=== PATIENT | female | born 1935 | race Caucasian/White ===

== ENCOUNTER 2019-08-09 05:25 | Emergency (ER) | payer MEDICARE, SELFPAY ==
--- NOTE | ~2019-08-09 | XR_ITS ---
XR chest 1V portable 08/09/2019 07:39 Indication: Status post fall. Head laceration. Chest pain. Procedure: AP portable chest Comparison: Comparison to multiple prior studies sequentially, with oldest reviewed study dated 06/07. Findings: There is chronic deformity of the right thoracic cavity with multiple healed rib fractures. There is an old healed distal left clavicular fracture. There is chronic right acromioclavicular amrik nt separation. There is chronic apical pleural thickening/scarring. No focal air space disease, pulmo nary edema, pleural effusion or suspected pneumothorax. Impression: 1: No acute cardiopulmonary disease. Reviewed, dictated and finalized at location A. ODS EXAMINER Impression: 1: No acute cardiopulmonary disease.
--- NOTE | ~2019-08-09 | CT_ITS ---
EXAMINATION: CT brain wo con DATE: 08/09/2019 07:16 INDICATION: Status post fall. Laceration to the back of the head. TECHNIQUE: Computed tomography (CT) of the head was performed without intravenous contrast. The dose- length product was 605.33 mGy-cm. The mA was adjusted according to patient size. Iterative reconstruc tion technique was employed. COMPARISON: CT dated 08/07/2018 FINDINGS: No acute intracranial hemorrhage, infarction, mass or mass effect. No ventriculomegaly or m idline shift. There are scattered moderate periventricular and subcortical white matter changes, most likely related to small vessel ischemic disease (microangiopathy). No ventriculomegaly or midline sh ift. Generalized atrophy. There is intracranial atherosclerosis. There is mucosal thickening of the r ight maxillary and the ethmoid sinuses. Mastoids are pneumatized. There is a partially calcified subc utaneous nodule at the left vertex, likely sebaceous cyst. IMPRESSION: 1. No acute intracranial abnormality. 2: Chronic age-related findings. Reviewed, dictated and finalized at location A. TLECOCK FEATHER TRIMMER
--- NOTE | ~2019-08-09 | CT_ITS ---
EXAMINATION: CT cervical spine wo con DATE: 08/09/2019 07:16 INDICATION: Status post fall. Neck pain. TECHNIQUE: Computed tomography (CT) of the cervical spine was performed without intravenous contrast. The dose-length product was 99 mGy-cm. Automated exposure control and iterative reconstruction techn ique were employed. COMPARISON: CT dated 06/23/2018 FINDINGS: Chronic T3 burst fracture. Accentuated cervical lordosis. No acute cervical fracture. Odont oid process within normal limits. There is minimal anterolisthesis at C7-T1, unchanged. Mild endplate degenerative changes at C4-5. There is biapical pleural parenchymal scarring. No pneumothorax identi fied. There is levoscoliosis of the cervical spine. IMPRESSION: 1. No acute fracture. 2: Stable chronic T3 burst fracture. Reviewed, dictated and finalized at location A. [place] ACCOUNT SPECIALIST
[2019-08-09 05:30] VITALS: BP 106/43; PULSE 80; RESP 18; TEMP 36.4; O2SAT 95
--- NOTE | 2019-08-09 06:51 | ECG_ITS ---
Measurements Intervals [place] Rate: 75 P: 57 ID: [id number] QRS: -3 QRSD: 85 T: 21 QT: 371 QTc: 415 Interpretive Statements SINUS RHYTHM WITH FIRST DEGREE AV BLOCK DELAYED PRECORDIAL R/S TRANSITION BASELINE ARTIFACT- I, III, AVR, AVL, V6 ABNORMAL ECG Electronically Signed On 08-09-2019 8:08:58 GOLD LEAF PRINTER by Harish Davis D.O.
[2019-08-09] MEDS: TETANUS,DIPHTHERIA,AC PERTUSSIS ADULT (0.5 ML) BOOSTRIX IM (07:16)
--- NOTE | 2019-08-09 07:35 | ED.FALL ---
HPI - Fall General Chief Complaint: Fall Stated Complaint: fall Time Seen by Provider: 08/09/19 06:15 Source: patient and family Mode of arrival: EMS Limitations: no limitations History of Present Illness HPI Narrative: 83 years old white female been feeling weak with poor appetite for the last few days, got up this morning to go to the bathroom and was have sleep, felt, struck the back of her head on the door handle, no loss of consciousness, denying any pain, history of chronic neck pain. Patient denies any fever, chills, respiratory symptoms or urinary symptoms. Had similar falls last year because sometimes she walks have sleep. Patient denies other injuries. Related Data Allergies Allergy/AdvReac Type Severity Reaction Status Date / Time meperidine Allergy Unknown Stopped Verified 06/25/18 08:16 Breathing Review of Systems Review of Systems: Narrative: CONSTITUTIONAL: Denies fever, chills, or sweats., Generally weak EYES: Denies visual changes, redness, or discharge. ENT: Denies rhinorrhea, congestion, sore throat, or otalgia. CARDIOVASCULAR: Denies chest pain, palpitations, or edema. RESPIRATORY: Denies cough or dyspnea. GASTROINTESTINAL: Denies abdominal pain, nausea, vomiting, or diarrhea. GENITOURINARY: Denies dysuria or hematuria. SKIN: Denies rash or itching. MUSCULOSKELETAL: Denies back pain, joint pain, or myalgia. NEUROLOGIC: Denies headache, numbness, or weakness. PSYCHIATRIC: Denies anxiety or depression. PMFSH Family History Family History Mother Family history of respiratory disorder Father Family history of lung cancer Social History Social History Smoking status: Never smoker Second hand tobacco smoke exposure: No Alcohol intake: never Exam Narrative: Exam Narrative: General appearance: Well-developed, well-nourished Skin: Normal color Head: Normocephalic, 1 and half centimeter occipital laceration, subcutaneous Eyes: Clear conjunctiva ENT: Oropharynx normal, ears normal, nose normal Neck: Supple, nontender Chest and respiratory: Airway patent, no respiratory distress, no accessory muscle use Heart: Regular rate/rhythm Abdomen: Soft, nontender, no organomegaly, quiet bowel sounds Vascular: Normal peripheral pulses, normal capillary refill. Musculoskeletal: Normal range of motion, nontender back Neurologic: Alert and oriented ?3, ELECTRICAL PROSPECTING ENGINEER is normal as tested, no gross motor deficit Course Course Emergency Course: Improving Vital Signs Vital signs: Vital Signs Temperature 36.4 C L 08/09/19 05:30 Pulse Rate 80 08/09/19 05:30 Respiratory Rate 18 08/09/19 05:30 Blood Pressure 106/43 L 08/09/19 05:30 Pulse Oximetry 95 08/09/19 05:30 Temperature 36.4 C L 08/09/19 05:30 Pulse Rate 86 08/09/19 09:18 Respiratory Rate 18 08/09/19 09:18 Blood Pressure 109/51 L 08/09/19 09:18 Pulse Oximetry 96 08/09/19 09:18 Procedures Laceration Laceration 1: Date: 08/09/19 Time: 07:00 Site: scalp Size (cm): 1.5 Description: linear and clean Depth: simple, single layer ====== Skin Level ====== Skin layer closed with: re (2 re) ====== Subcutaneous Layer ====== ====== Muscle Layer ====== ====== Tendon Layer ====== MDM - Fall MDM Narrative Medical decision making narrative: Patient been feeling weak for a while, my differential diagnosis is electrolyte imbalance, urinary tract infection, pneumonia, viral syndrome. Labs ordered, chest x-ray, UA, CT head and neck. Further plan to follow Differential Diagnosis
[2019-08-09 07:57] VITALS: BP 133/61; PULSE 76; RESP 14; O2SAT 95
[2019-08-09 08:10] LABS: Basophils Percent Auto 0.4 % (0.2-1.2); Hematocrit 40.8 % (37.0-47.0); Hemoglobin 13.3 g/dL (12.0-15.0); Immature Granulocyte Absolute 0.03 K/mm3 (0.00-0.031); Immature Granulocyte Percent A 0.4 % (0-0.5); Lymphocytes Absolute Auto 0.89 K/mm3 (0.9-3.2); Lymphocytes Percent Auto 10.5 % (18.3-44.2); Mean Corpuscular HGB Conc 32.6 g/dl (32-36); Mean Corpuscular Hemoglobin 28.6 pg (26-34); Mean Corpuscular Volume 87.7 fl (80-100); Mean Platelet Volume 12.1 fl (7.4-10.4); Monocytes Absolute Auto 1.1 K/mm3 (0.1-0.6); Monocytes Percent Auto 12.8 % (2.6-8.5); Neutrophils Absolute Auto 6.5 K/mm3 (1.3-6.7); Neutrophils Percent Auto 75.9 % (45.5-73.1); Platelet Count Result 187 k/mm3 (150-375); Red Blood Count 4.65 M/mm3 (4.2-5.4); Red Cell Distribution Width 13.5 % (11.5-14.5); White Blood Count 8.5 K/mm3 (4.5-10.0)
[2019-08-09 08:13] LABS: Add Urine Microscopic? YES; Appearance Urine Cloudy (Clear); Bacteria Urine Trace /hpf; Bilirubin Urine Negative (Negative); Blood Urine Negative (Negative); Color Urine Amber (Yellow); Glucose Urine UA Negative (Negative); Hyaline Casts Urine 30-49 /lpf; Ketones Urine Trace mg/dL (Negative); Leukocyte Esterase Ur Negative LEU/UL (Negative); Mucus Urine Few /lpf; Nitrate Urine Negative (Negative); Protein Urine 1+ mg/dL (Negative); RBC Urine 0-2 /hpf (0-2); Specific Grav Ur 1.023 (1.001-1.035); Squamous Epithelial Cell Urine Occasional /hpf (Few); Urobilinogen Urine Negative mg/dL (<2.0)
[2019-08-09 08:21] LABS: Alanine Aminotransferase 35 U/L (4-35); Albumin Level 4.2 g/dL (3.5-5.1); Alkaline Phosphatase 87 U/L (38-126); Aspartate Amino Transferase 31 U/L (14-36); Bilirubin,Total 0.9 mg/dL (0.2-1.3); Blood Urea Nitrogen 31 mg/dL (7-17); Calcium 9.3 mg/dL (8.4-10.2); Carbon Dioxide 24 mmol/L (22-30); Chloride 105 mmol/L (98-107); Estimated Glomerular Filt Rate 43; Glucose 111 mg/dL (65-105); Potassium 4.2 mmol/L (3.4-5.0); Sodium 139 mmol/L (137-145)
[2019-08-09 09:18] VITALS: BP 109/51; PULSE 86; RESP 18; O2SAT 96
[2019-08-09 09:53] VITALS: BP 132/59; PULSE 70; RESP 16; O2SAT 94
== END 2019-08-09 09:56 ==
PROVIDERS: Emergency Provider Emergency Medicine; PCP Family Medicine
DX: S01.01XA Laceration without foreign body of scalp, initial encounter (principal); R53.1 Weakness; Z23 Encounter for immunization; I44.0 Atrioventricular block, first degree; R94.31 Abnormal electrocardiogram [ECG] [EKG]; W01.198A Fall on same level from slipping, tripping and stumbling with subsequent striking against other object, initial encounter
CPT/HCPCS: 12001; 36415; 51701; 70450; 71045; 72125; 80053; 81001; 85025; 87804; 90471; 90715; 93005; 99284

== ENCOUNTER 2020-02-07 08:47 | Emergency (ER) | payer MEDICARE, SELFPAY ==
--- NOTE | ~2020-02-07 | XR_ITS ---
EXAMINATION: XR hand LT min 3V EXAM DATE: 02/07/2020 09:48 INDICATION: Initial encounter following injury, with pain of the left hand. TECHNIQUE: Left hand frontal, lateral and oblique projections obtained and reviewed. There is no dion or study for comparison. FINDINGS: Left metacarpal bones are unremarkable. There are no acute fractures or dislocations ident ified. There is no subcutaneous gas. The soft tissue is unremarkable. There are no radiopaque for eign bodies. There is moderate 1st carpometacarpal primary osteoarthritis. IMPRESSION: No acute osseous findings. Reviewed, dictated and finalized at location A. IMPRESSION: No acute osseous findings.
--- NOTE | ~2020-02-07 | CT_ITS ---
EXAMINATION: CT brain wo con EXAM DATE: 02/07/2020 09:43 INDICATION: Dizziness. Fall. TECHNIQUE: Spiral CT of the head was performed without contrast. Axial, coronal and sagittal images were reviewed. The dose-length product (DLP) for this examination was 681.00 mGy-cm. The exposure w as tailored according to patient size, and iterative reconstruction (ASIR) was used as additional dos e reduction technique. 08/09/2019 FINDINGS: There is no acute intraparenchymal hemorrhage. No evidence of intraparenchymal brain mass lesion. No evidence of acute infarction. Please note that initial head CT has limited sensitivity f or small or acute infarctions. There is moderate periventricular and subcortical hypodensity, nonspec ific but probably related to small vessel ischemic disease. There is moderate prominence of the sul ci and ventricles related to cerebral atrophy. There is intracranial carotid arteriosclerosis. The re are no extra-axial collections. There is no mass effect or midline shift. Patient has had bilate ral ocular lens surgery. Partially calcified left vertex scalp lesion likely sebaceous cyst. The vi sualized sinuses and mastoid air cells are well aerated. There is no significant interval change. IMPRESSION: 1. No acute intracranial findings. 2. Chronic age related findings. Reviewed, dictated and finalized at location A.
[2020-02-07 08:45] VITALS: BP 142/62; PULSE 70; RESP 14; TEMP 36.1; O2SAT 95
--- NOTE | 2020-02-07 08:52 | ECG_ITS ---
Measurements Intervals [place] Rate: 65 P: 52 VT: 212 QRS: 1 QRSD: 94 T: 29 QT: 400 QTc: 419 Interpretive Statements SINUS RHYTHM WITH FIRST DEGREE AV BLOCK CANNOT RULE OUT SEPTAL INFARCT, AGE INDETERMINATE BASELINE ARTIFACT- I, III, AVR, AVL, V6 ABNORMAL ECG Electronically Signed On 02-07-2020 9:04:07 CDT by Harish Davis D.O.
--- NOTE | 2020-02-07 08:53 | ED.DIZZY ---
HPI - Dizziness General Chief Complaint: Dizziness Stated Complaint: dizziness/fall Time Seen by Provider: 02/07/20 08:51 History of Present Illness HPI Narrative: 84 yo female w/ h/o dementia BIBEMS from assisted living at [facility] after a fall. She suffered an unwitnessed fall from standing. She syas that she got dizzy and fell. She is not able to describe dizziness. Denies LOC. She reports pain and stiffness in the in the medial side of the left hand. She also reports sue she struck the leftside of her head. She denies any pain. She does have some on going dizziness worse with upright posture. Related Data Allergies Allergy/AdvReac Type Severity Reaction Status Date / Time meperidine Allergy Unknown Stopped Verified 06/25/18 08:16 Breathing Review of Systems Review of Systems: All systems reviewed & are unremarkable except as noted in HPI and below Constitutional: Constitutional: Denies fever(s) and Denies weakness Eyes: Eyes: Denies change in vision Cardiovascular: Cardiovascular: Denies chest pain Respiratory: Respiratory: Denies dyspnea Gastrointestinal: Gastrointestinal: Denies abdominal pain and Denies nausea Genitourinary: Genitourinary: Denies dysuria Musculoskeletal: Musculoskeletal: Denies back pain Neurologic: Reports dizziness, Denies headache(s) and Denies weakness [facility] Family History Family History Mother Family history of respiratory disorder Father Family history of lung cancer Social History Social History Smoking status: Never smoker Second hand tobacco smoke exposure: No Alcohol intake: never Exam Const: General: no acute distress and alert Orientation/consciousness: patient oriented x3 HENMT: Head: normal to inspection Neck: Neck: normal visual inspection and no lymphadenopathy Chest: Chest palpation & inspection: no tenderness Resp: Effort & Inspection: normal respiratory effort Auscultation: clear to auscultation bilaterally, no rales, no rhonchi and no wheezes Cardio: Jugular venous distension: no JVD Rate: regular rate Rhythm: regular rhythm Heart sounds: no murmurs GI: Inspection: non-distended GI Palp: Yes Soft to palpation and No Tenderness to palpation present (GI) Skin: General skin exam: normal color Neuro: General: patient oriented x3 and moves all extremities Speech: normal speech Extrem: Other: minimal tenderness of MCPs of 3-5 fingers on left hand. No deformity. Full ROM. Psych: Appearance: well kempt Affect: normal affect Course Vital Signs Vital signs: Vital Signs Temperature 36.1 C L 02/07/20 08:45 Pulse Rate 70 02/07/20 08:45 Respiratory Rate 14 02/07/20 08:45 Blood Pressure 142/62 H 02/07/20 08:45 Pulse Oximetry 95 02/07/20 08:45 Temperature 36.1 C L 02/07/20 08:45 Pulse Rate 77 02/07/20 11:20 Respiratory Rate 22 H 02/07/20 11:20 Blood Pressure 153/66 H 02/07/20 11:20 Pulse Oximetry 98 02/07/20 11:20 MDM - Dizziness MDM Narrative Medical decision making narrative: No dizziness. walking with stable gait. Labs and imaging unremarkable. Medical Records Attestation: I reviewed the patient's medical records. Lab Data Attestation: I reviewed the patient's lab results. Result diagrams: 02/07/20 09:25 02/07/20 09:24 Labs: Lab Results 02/07/20 02/07/20 02/07/20 Range/Units 09:13 09:24 09:24 WBC (4.5-10.0) K/mm3 RBC (4.2-5.4) M/mm3 Hgb (12.0-15.0) g/dL Hct (37.0-47.0) % MCV (80-100) fl MCH (26-34) pg MCHC (32-36) g/dl RDW (11.5-14.5) % Plt Count (150-375) k/mm3 MPV (7.4-10.4) fl Immature Gran % (Auto) (0-0.5) % Neut % (Auto) (45.5-73.1) % Lymph % (Auto) (18.3-44.2) % [place] % (Auto) (2.6-8.5) % Eos % (Auto) (0-4.4) % Baso % (Auto) (0.2-1.2) % Lymph # (Auto)
[2020-02-07] MEDS: SODIUM CHLORIDE 0.9% IV 500 ML 999 ML IV CONT (09:01)
[2020-02-07 09:22] LABS: Add Urine Microscopic? NO; Appearance Urine Clear (Clear); Bilirubin Urine Negative (Negative); Blood Urine Negative (Negative); Color Urine Yellow (Yellow); Glucose Urine UA Negative (Negative); Ketones Urine Negative (Negative); Leukocyte Esterase Ur Negative LEU/UL (Negative); Nitrate Urine Negative (Negative); Protein Urine Negative (Negative); Specific Grav Ur 1.018 (1.001-1.035); Urobilinogen Urine Negative mg/dL (<2.0)
[2020-02-07 09:26] VITALS: BP 146/56; BP 158/75; PULSE 55; PULSE 56
[2020-02-07 09:28] VITALS: BP 135/77; PULSE 66
[2020-02-07 09:34] LABS: Basophils Percent Auto 0.8 % (0.2-1.2); Eosinophils Absolute Auto 0.2 K/mm3 (0-0.3); Eosinophils Percent Auto 4.2 % (0-4.4); Hematocrit 40.7 % (37.0-47.0); Hemoglobin 13.1 g/dL (12.0-15.0); Immature Granulocyte Absolute 0.03 K/mm3 (0.00-0.031); Immature Granulocyte Percent A 0.6 % (0-0.5); Lymphocytes Absolute Auto 1.11 K/mm3 (0.9-3.2); Lymphocytes Percent Auto 22.2 % (18.3-44.2); Mean Corpuscular HGB Conc 32.2 g/dl (32-36); Mean Corpuscular Hemoglobin 28.4 pg (26-34); Mean Corpuscular Volume 88.3 fl (80-100); Mean Platelet Volume 12.1 fl (7.4-10.4); Monocytes Absolute Auto 0.5 K/mm3 (0.1-0.6); Monocytes Percent Auto 10.4 % (2.6-8.5); Neutrophils Absolute Auto 3.1 K/mm3 (1.3-6.7); Neutrophils Percent Auto 61.8 % (45.5-73.1); Platelet Count Result 187 k/mm3 (150-375); Red Blood Count 4.61 M/mm3 (4.2-5.4); Red Cell Distribution Width 13.7 % (11.5-14.5)
[2020-02-07 09:42] LABS: Prothrombin Time 13.2 Seconds (11.1-14.7)
[2020-02-07 09:43] LABS: Partial Thromboplastin Time 30.9 SECONDS (22.3-36.8)
[2020-02-07 09:47] LABS: Anion Gap 8.7 mmol/L (7-16); Blood Urea Nitrogen 21 mg/dL (7-17); Calcium 9.2 mg/dL (8.4-10.2); Carbon Dioxide 29 mmol/L (22-30); Chloride 108 mmol/L (98-107); Estimated CRCL calculation 34 ml/min; Estimated Glomerular Filt Rate 60; Glucose 111 mg/dL (65-105); Potassium 3.7 mmol/L (3.4-5.0); Sodium 142 mmol/L (137-145)
--- NOTE | 2020-02-07 09:55 | PC.NURSE ---
Terri w/ Poly W - pts POA, at [phone] and given update on pt.
--- NOTE | 2020-02-07 09:56 | PC.NURSE ---
Pt currently in CT scan, via stretcher.
[2020-02-07 10:07] VITALS: BP 154/70; PULSE 54; RESP 18; O2SAT 98
[2020-02-07 11:20] VITALS: BP 153/66; PULSE 77; RESP 22; O2SAT 98
== END 2020-02-07 12:00 ==
PROVIDERS: Emergency Provider Emergency Medicine; PCP Family Medicine
DX: R42 Dizziness and giddiness (principal); M79.642 Pain in left hand; W18.39XA Other fall on same level, initial encounter; I44.0 Atrioventricular block, first degree; R94.31 Abnormal electrocardiogram [ECG] [EKG]
CPT/HCPCS: 36415; 51701; 70450; 73130; 80048; 81003; 85025; 85610; 85730; 93005; 96360; 99284; J7040

== ENCOUNTER 2020-02-13 14:53 | Emergency (ER) | payer MEDICARE, SELFPAY ==
[2020-02-13] VITALS (15 sets, daily range): BP systolic 102–159; BP diastolic 65–108; PULSE 60–94; RESP 15–20; TEMP 36.4; O2SAT 93–95
--- NOTE | 2020-02-13 14:57 | ECG_ITS ---
Measurements Intervals [place] Rate: 81 P: 51 [place]: 218 QRS: 10 QRSD: 98 T: 44 QT: 383 QTc: 445 Interpretive Statements SINUS RHYTHM WITH SINUS ARRHYTHMIA WITH FIRST DEGREE AV BLOCK BASELINE ARTIFACT- I, II, III, AVR, AVL, AVF, V1-V6 ABNORMAL ECG Electronically Signed On 02-14-2020 7:53:56 CDT by Harish Davis D.O.
[2020-02-13] MEDS: SODIUM CHLORIDE 0.9% IV 1,000 ML 999 ML IV CONT (15:44)
[2020-02-13 16:00] LABS: Add Urine Microscopic? YES; Appearance Urine Clear (Clear); Bilirubin Urine Negative (Negative); Blood Urine 1+ (Negative); Color Urine Yellow (Yellow); Glucose Urine UA Negative (Negative); Ketones Urine 1+ mg/dL (Negative); Leukocyte Esterase Ur Negative LEU/UL (Negative); Mucus Urine Rare /lpf; Nitrate Urine Negative (Negative); Protein Urine Negative (Negative); RBC Urine 0-2 /hpf (0-2); Specific Grav Ur 1.019 (1.001-1.035); Urobilinogen Urine Negative mg/dL (<2.0); WBC Urine 0-3 /hpf
[2020-02-13 16:05] LABS: Basophils Absolute Auto 0.1 K/mm3 (0.0-0.1); Basophils Percent Auto 0.7 % (0.2-1.2); Eosinophils Absolute Auto 0.1 K/mm3 (0-0.3); Eosinophils Percent Auto 1.6 % (0-4.4); Hematocrit 35.8 % (37.0-47.0); Hemoglobin 11.8 g/dL (12.0-15.0); Immature Granulocyte Absolute 0.03 K/mm3 (0.00-0.031); Immature Granulocyte Percent A 0.4 % (0-0.5); Lymphocytes Absolute Auto 1.35 K/mm3 (0.9-3.2); Lymphocytes Percent Auto 19.1 % (18.3-44.2); Mean Platelet Volume 12.3 fl (7.4-10.4); Monocytes Absolute Auto 0.9 K/mm3 (0.1-0.6); Monocytes Percent Auto 12.5 % (2.6-8.5); Neutrophils Absolute Auto 4.6 K/mm3 (1.3-6.7); Neutrophils Percent Auto 65.7 % (45.5-73.1); Platelet Count Result 202 k/mm3 (150-375); Red Blood Count 4.07 M/mm3 (4.2-5.4); Red Cell Distribution Width 13.7 % (11.5-14.5); White Blood Count 7.1 K/mm3 (4.5-10.0)
[2020-02-13 16:16] LABS: Anion Gap 6 mmol/L (8-16); Blood Urea Nitrogen 33 mg/dL (7-17); Calcium 8.6 mg/dL (8.4-10.2); Carbon Dioxide 23 mmol/L (22-30); Chloride 112 mmol/L (98-107); Estimated CRCL calculation 41 ml/min; Estimated Glomerular Filt Rate > 60; Glucose 87 mg/dL (65-105); Potassium 3.7 mmol/L (3.4-5.0); Sodium 141 mmol/L (137-145)
--- NOTE | 2020-02-13 17:22 | ED.AMS ---
HPI - Altered Mental Status General Chief Complaint: Altered Mental Status Stated Complaint: ams/several falls Time Seen by Provider: 02/13/20 15:08 History of Present Illness HPI narrative: Patient is an 84-year-old female who presents ER with concern for altered mental status from her [facility]. Baseline patient is oriented x3. Right now she is oriented 2-3. She has no complaints of pain. No reports of hypoxia or cough from the fci. Related Data Home Medications Medication Instructions Recorded Confirmed ferrous gluconate 324 mg PO DAILY 02/13/20 Allergies Allergy/AdvReac Type Severity Reaction Status Date / Time meperidine Allergy Unknown Stopped Verified 06/25/18 08:16 Breathing Review of Systems Review of Systems: ROS unobtainable: Yes unobtainable due to mental status PMFSH Social History Social History Smoking status: Never smoker Second hand tobacco smoke exposure: No Alcohol intake: never Gender identity (if verbalized by the patient): Female Exam Narrative: Exam Narrative: GENERAL: Well-appearing, well-nourished, and in no acute distress. HEAD: Normocephalic, atraumatic. ENT: Mucous membranes moist. CHEST: Clear to auscultation. No respiratory distress. HEART: Regular rate and rhythm. Normal peripheral pulses. ABDOMEN: Soft, nontender, nondistended. EXTREMITIES: Normal range of motion. No edema. SKIN: Warm, dry, no rash. NEURO: No focal deficits. Alert and oriented x2-3. Course Course Emergency Course: Unremarkable evaluation. Patient hydrated. Seems more alert. Sent back to fci. Vital Signs Vital signs: Vital Signs Temperature 97.6 F 02/13/20 14:56 Pulse Rate 81 02/13/20 14:56 Respiratory Rate 18 02/13/20 14:56 Blood Pressure 159/86 H 02/13/20 14:56 Pulse Oximetry 95 02/13/20 14:56 Temperature 97.6 F 02/13/20 14:56 Pulse Rate 81 02/13/20 14:56 Respiratory Rate 18 02/13/20 14:56 Blood Pressure 159/86 H 02/13/20 14:56 Pulse Oximetry 95 02/13/20 14:56 MDM - Altered Mental Status Lab Data Result diagrams: 02/13/20 15:59 02/13/20 15:59 Labs: Lab Results 02/13/20 02/13/20 02/13/20 Range/Units 15:45 15:59 15:59 WBC 7.1 (4.5-10.0) K/mm3 RBC 4.07 L (4.2-5.4) M/mm3 Hgb 11.8 L (12.0-15.0) g/dL Hct 35.8 L (37.0-47.0) % MCV 88.0 (80-100) fl MCH 29.0 (26-34) pg MCHC 33.0 (32-36) g/dl RDW 13.7 (11.5-14.5) % Plt Count 202 (150-375) k/mm3 MPV 12.3 H (7.4-10.4) fl Immature Gran % (Auto) 0.4 (0-0.5) % Neut % (Auto) 65.7 (45.5-73.1) % Lymph % (Auto) 19.1 (18.3-44.2) % [place] % (Auto) 12.5 H (2.6-8.5) % Eos % (Auto) 1.6 (0-4.4) % Baso % (Auto) 0.7 (0.2-1.2) % Lymph # (Auto) 1.35 (0.9-3.2) K/mm3 [place] # (Auto) 0.9 H (0.1-0.6) K/mm3 Eos # (Auto) 0.1 (0-0.3) K/mm3 Baso # (Auto) 0.1 (0.0-0.1) K/mm3 Abs Immat Gran (auto) 0.03 (0.00-0.031) K/mm3 Absolute Neuts (auto) 4.6 (1.3-6.7) K/mm3 Absolute Nucleated RBC 0.0 (0.0-0.012) K/mm3 Nucleated RBC % 0.0 (0.0-0.2) % Sodium 141 (137-145) mmol/L Potassium 3.7 (3.4-5.0) mmol/L Chloride 112 H (98-107) mmol/L Carbon Dioxide 23 (22-30) mmol/L Anion Gap 6 L (8-16) mmol/L BUN 33 H D (7-17) mg/dL Creatinine 0.80 (0.7-1.0) mg/dL Estim Creat Clear Calc 41 ml/min Estimated GFR > 60 (59 - ) Glucose 87 (65-105) mg/dL Calcium 8.6 (8.4-10.2) mg/dL Urine Color Yellow (Yellow) Urine Appearance Clear (Clear) Urine pH 5.0 (5.0-9.0) Ur Specific [place] 1.019 (1.001-1.035) Urine Protein Negative (Negative) mg/dL Urine Glucose (UA) Negative (Negative) mg/dL Urine Ketones 1+ H (Negative) mg/dL Ur Blood (Man) 1+ H (Negative) Urine Nitrate Negative (Negative) Urine Bilirubin Negative (Negativ
== END 2020-02-13 18:05 ==
PROVIDERS: Emergency Provider Emergency Medicine; PCP Family Medicine
DX: R53.83 Other fatigue (principal); F03.90 Unspecified dementia, unspecified severity, without behavioral disturbance, psychotic disturbance, mood disturbance, and anxiety; E03.9 Hypothyroidism, unspecified; Z96.652 Presence of left artificial knee joint
CPT/HCPCS: 36415; 51701; 80048; 81001; 85025; 93005; 96360; 99283; J7030

== ENCOUNTER 2020-02-16 20:40 | Emergency (ER) | payer MEDICARE, SELFPAY ==
--- NOTE | ~2020-02-16 | CT_ITS ---
EXAMINATION: CT brain wo con EXAM DATE: 02/16/2020 22:08 INDICATION: Fell 6 weeks ago. Altered mental status. TECHNIQUE: Spiral CT of the head was performed without contrast. Axial, coronal and sagittal images were reviewed. The dose-length product (DLP) for this examination was 681.00 mGy-cm. The exposure w as tailored according to patient size, and iterative reconstruction (ASIR) was used as additional dos e reduction technique. Comparison is made to prior examination from 02/07/2020. FINDINGS: There is no acute intraparenchymal hemorrhage. No evidence of intraparenchymal brain mass lesion. No evidence of acute infarction. Please note that initial head CT has limited sensitivity f or small or acute infarctions. There is moderate periventricular and subcortical hypodensity, nonspec ific but probably related to small vessel ischemic disease. There is moderate prominence of the sul ci and ventricles related to cerebral atrophy. There is intracranial carotid arteriosclerosis. The re are no extra-axial collections. There is no mass effect or midline shift. Patient has had bilate ral ocular lens surgery. Calcified sebaceous cyst left-sided scalp. The visualized sinuses and masto id air cells are well aerated. IMPRESSION: 1. No acute intracranial findings. 2. Chronic age related findings. Reviewed, dictated and finalized at location A.
[2020-02-16 20:40] VITALS: BP 143/71; PULSE 71; RESP 21; TEMP 36.7; O2SAT 98
--- NOTE | 2020-02-16 20:58 | ED.AMS ---
HPI - Altered Mental Status General Chief Complaint: Altered Mental Status Stated Complaint: decreased loc Time Seen by Provider: 02/16/20 20:58 History of Present Illness HPI narrative: History limited by ulises. Sent in from senior living for altered mental status. there are conflicting reports about baseline mental status. On my evalaution she is oriented x2. She has no specific complaints and says that she does not want to be her. She has reportedly been confused since a fall 2 weeks ago. On review of the chart she was seen here at that time and has been here again once more since then. Related Data Home Medications Medication Instructions Recorded Confirmed ferrous gluconate 324 mg PO DAILY 02/13/20 Allergies Allergy/AdvReac Type Severity Reaction Status Date / Time meperidine Allergy Unknown Stopped Verified 06/25/18 08:16 Breathing Review of Systems Review of Systems: All systems reviewed & are unremarkable except as noted in HPI and below PMFSH Social History Social History Smoking status: Never smoker Second hand tobacco smoke exposure: No Alcohol intake: never Gender identity (if verbalized by the patient): Female Exam Const: Nutritional Appearance: well nourished Other: Oriented x2. drowsy HENMT: Head: normal to inspection Eyes: Pupils: Equal, round and reactive pupils present EOM: EOMs intact bilaterally Resp: Effort & Inspection: normal respiratory effort Auscultation: clear to auscultation bilaterally Cardio: Rate: regular rate Rhythm: regular rhythm GI: GI Palp: Yes Soft to palpation and No Tenderness to palpation present (GI) Skin: General skin exam: normal color Neuro: General: moves all extremities, no focal motor deficits and CN's II-XI intact bilaterally Speech: normal speech Extrem: General: no edema Course Vital Signs Vital signs: Vital Signs Temperature 36.7 C 02/16/20 20:40 Pulse Rate 71 02/16/20 20:40 Respiratory Rate 21 H 02/16/20 20:40 Blood Pressure 143/71 H 02/16/20 20:40 Pulse Oximetry 98 02/16/20 20:40 Temperature 36.2 C L 02/17/20 01:12 Pulse Rate 79 02/17/20 01:12 Respiratory Rate 19 02/17/20 01:12 Blood Pressure 154/84 H 02/17/20 01:12 Pulse Oximetry 100 02/17/20 01:12 MDM - Altered Mental Status Medical Records Attestation: I reviewed the patient's medical records. Lab Data Attestation: I reviewed the patient's lab results. Result diagrams: 02/16/20 21:21 02/16/20 21:21 Labs: Lab Results 02/16/20 02/16/20 02/16/20 Range/Units 21:21 21:21 21:45 WBC 7.8 (4.5-10.0) K/mm3 RBC 4.32 (4.2-5.4) M/mm3 Hgb 12.3 (12.0-15.0) g/dL Hct 38.1 (37.0-47.0) % MCV 88.2 (80-100) fl MCH 28.5 (26-34) pg MCHC 32.3 (32-36) g/dl RDW 13.6 (11.5-14.5) % Plt Count 207 (150-375) k/mm3 MPV 12.3 H (7.4-10.4) fl Immature Gran % (Auto) 0.4 (0-0.5) % Neut % (Auto) 59.9 (45.5-73.1) % Lymph % (Auto) 21.1 (18.3-44.2) % [place] % (Auto) 14.7 H (2.6-8.5) % Eos % (Auto) 3.5 (0-4.4) % Baso % (Auto) 0.4 (0.2-1.2) % Lymph # (Auto) 1.64 (0.9-3.2) K/mm3 [place] # (Auto) 1.1 H (0.1-0.6) K/mm3 Eos # (Auto) 0.3 (0-0.3) K/mm3 Baso # (Auto) 0.0 (0.0-0.1) K/mm3 Abs Immat Gran (auto) 0.03 (0.00-0.031) K/mm3 Absolute Neuts (auto) 4.7 (1.3-6.7) K/mm3 Absolute Nucleated RBC 0.0 (0.0-0.012) K/mm3 Nucleated RBC % 0.0 (0.0-0.2) % Sodium 142 (137-145) mmol/L Potassium 3.7 (3.4-5.0) mmol/L Chloride 110 H (98-107) mmol/L Carbon Dioxide 25 (22-30) mmol/L Anion Gap 7 L (8-16) mmol/L BUN 38 H (7-17) mg/dL Creatinine 1.30 H (0.7-1.0) mg/dL Estim Creat Clear Calc Not Reportable Estimated GFR 39 L (59 - ) Glucose 102 (65-105) mg/dL Calcium 9.2 (8.4-10.2) mg/dL Total Bilirubin 1.1 (0.2-1.3) mg/dL
[2020-02-16 21:14] VITALS: BP 149/70; PULSE 60; RESP 14; O2SAT 100
[2020-02-16] MEDS: SODIUM CHLORIDE 0.9% IV 500 ML 999 ML IV CONT (21:17)
[2020-02-16 21:27] LABS: Basophils Percent Auto 0.4 % (0.2-1.2); Eosinophils Absolute Auto 0.3 K/mm3 (0-0.3); Eosinophils Percent Auto 3.5 % (0-4.4); Hematocrit 38.1 % (37.0-47.0); Hemoglobin 12.3 g/dL (12.0-15.0); Immature Granulocyte Absolute 0.03 K/mm3 (0.00-0.031); Immature Granulocyte Percent A 0.4 % (0-0.5); Lymphocytes Absolute Auto 1.64 K/mm3 (0.9-3.2); Lymphocytes Percent Auto 21.1 % (18.3-44.2); Mean Corpuscular HGB Conc 32.3 g/dl (32-36); Mean Corpuscular Hemoglobin 28.5 pg (26-34); Mean Corpuscular Volume 88.2 fl (80-100); Mean Platelet Volume 12.3 fl (7.4-10.4); Monocytes Absolute Auto 1.1 K/mm3 (0.1-0.6); Monocytes Percent Auto 14.7 % (2.6-8.5); Neutrophils Absolute Auto 4.7 K/mm3 (1.3-6.7); Neutrophils Percent Auto 59.9 % (45.5-73.1); Platelet Count Result 207 k/mm3 (150-375); Red Blood Count 4.32 M/mm3 (4.2-5.4); Red Cell Distribution Width 13.6 % (11.5-14.5); White Blood Count 7.8 K/mm3 (4.5-10.0)
[2020-02-16 21:39] LABS: Alanine Aminotransferase 27 U/L (4-35); Albumin Level 3.8 g/dL (3.5-5.1); Alkaline Phosphatase 93 U/L (38-126); Anion Gap 7 mmol/L (8-16); Aspartate Amino Transferase 31 U/L (14-36); Bilirubin,Total 1.1 mg/dL (0.2-1.3); Blood Urea Nitrogen 38 mg/dL (7-17); Calcium 9.2 mg/dL (8.4-10.2); Carbon Dioxide 25 mmol/L (22-30); Chloride 110 mmol/L (98-107); Estimated Glomerular Filt Rate 39; Glucose 102 mg/dL (65-105); Potassium 3.7 mmol/L (3.4-5.0); Sodium 142 mmol/L (137-145)
[2020-02-16 22:06] LABS: Add Urine Microscopic? YES; Appearance Urine Clear (Clear); Bilirubin Urine Negative (Negative); Blood Urine 2+ (Negative); Color Urine Yellow (Yellow); Glucose Urine UA Negative (Negative); Ketones Urine Trace mg/dL (Negative); Leukocyte Esterase Ur Negative LEU/UL (Negative); Mucus Urine Rare /lpf; Nitrate Urine Negative (Negative); Protein Urine Negative (Negative); RBC Urine 0-2 /hpf (0-2); Squamous Epithelial Cell Urine Rare /hpf (Few); Urobilinogen Urine Negative mg/dL (<2.0)
[2020-02-16 22:17] VITALS: BP 151/70; PULSE 68; RESP 18; O2SAT 98
[2020-02-16 22:46] VITALS: BP 151/69; PULSE 72; RESP 19; O2SAT 97
[2020-02-17 00:10] VITALS: BP 138/90; PULSE 70; RESP 19; O2SAT 98
[2020-02-17 01:12] VITALS: BP 154/84; PULSE 79; RESP 19; TEMP 36.2; O2SAT 100
== END 2020-02-17 01:13 ==
PROVIDERS: Emergency Provider Emergency Medicine; PCP Family Medicine
DX: E86.0 Dehydration (principal); F03.90 Unspecified dementia, unspecified severity, without behavioral disturbance, psychotic disturbance, mood disturbance, and anxiety
CPT/HCPCS: 36415; 70450; 80053; 81001; 85025; 96360; 99284; J7040

== ENCOUNTER 2020-03-20 06:03 | Observation (INO) | payer MEDICARE, SELFPAY ==
--- NOTE | ~2020-03-20 | CT_ITS ---
EXAMINATION: CT brain wo con DATE: 03/20/2020 06:31 INDICATION: Status post fall. Weakness. TECHNIQUE: Computed tomography (CT) of the head was performed without intravenous contrast. The dose- length product was 681.00 mGy-cm. The mA was adjusted according to patient size. Iterative reconstruc tion technique was employed. COMPARISON: CT dated 02/16/2020 FINDINGS: Generalized atrophy. There are scattered moderate periventricular and subcortical white mat ter changes, most likely related to small vessel ischemic disease (microangiopathy). No acute intracr anial hemorrhage, infarction or mass or mass effect. No midline shift. Basilar cisterns are patent. T here are changes of previous cataract surgery. Paranasal sinuses and mastoids are pneumatized. No dep ressed skull fractures. Midline sagittal images are unremarkable. IMPRESSION: 1. No acute intracranial abnormality. No significant interval change. Reviewed, dictated and finalized at location A.
--- NOTE | ~2020-03-20 | XR_ITS ---
EXAMINATION: XR hip BI wo pelvis DATE: 03/21/2020 14:32 INDICATION: Hip pain. Fall. TECHNIQUE: 2 views of right hip and 2 views of left hip were obtained. COMPARISON: None. FINDINGS: There is lumbar dextroscoliosis and at least mild spondylosis. No fracture. There is mild o steoarthritis of the hips. IMPRESSION: 1. Mild osteoarthritis of the hips. Reviewed, dictated and finalized at location A.
[2020-03-20 06:06] VITALS: BP 154/71; PULSE 63; RESP 17; TEMP 36.2; O2SAT 97
--- NOTE | 2020-03-20 06:07 | ECG_ITS ---
Measurements Intervals [place] Rate: 68 P: 65 [place]: 206 QRS: 57 QRSD: 94 T: 60 QT: 402 QTc: 430 Interpretive Statements SINUS RHYTHM BASELINE ARTIFACT- I, II, III, AVR, AVL, AVF NORMAL ECG Electronically Signed On 03-20-2020 8:04:28 CDT by Harish Davis D.O.
--- NOTE | 2020-03-20 06:10 | ED.WEAKNESS ---
HPI - Weakness General Chief complaint: Weakness Stated complaint: weakness Time Seen by Provider: 03/20/20 06:07 History of Present Illness HPI Narrative: Brought in by EMS from [facility] living for an unwitnessed fall. Found on the ground this morning. She denies falling. She says she was just too weak and had to let herself down to the ground. She does report some pain, she is not able to articulate where the pain is. EMS noted her to be nearly rigid when the lifted her from the ground. Related Data Home Medications Medication Instructions Recorded Confirmed ferrous gluconate 324 mg PO DAILY 02/13/20 03/20/20 Allergies Allergy/AdvReac Type Severity Reaction Status Date / Time meperidine Allergy Unknown Stopped Verified 03/20/20 06:25 Breathing Review of Systems Review of Systems: ROS unobtainable: Yes unobtainable due to mental status PMFSH Past Medical History Medical History Dementia Hypothyroidism Family History Family History Mother Family history of respiratory disorder Father Family history of lung cancer Social History Social History Smoking status: Never smoker Second hand tobacco smoke exposure: No Alcohol intake: never Gender identity (if verbalized by the patient): Female Exam Const: General: alert Nutritional Appearance: thin Orientation/consciousness: patient oriented x3 and confusion Other: Frail, elderly HENMT: Mouth: Yes dry mucous membranes Eyes: Pupils: Equal, round and reactive pupils present Chest: Chest palpation & inspection: normal inspection of the chest and no tenderness Resp: Effort & Inspection: normal respiratory effort Auscultation: clear to auscultation bilaterally Cardio: Rate: regular rate Rhythm: regular rhythm GI: GI Palp: Yes Soft to palpation and No Tenderness to palpation present (GI) Skin: General skin exam: normal color Neuro: General: patient oriented x3 and CN's II-XI intact bilaterally Course Vital Signs Vital signs: Vital Signs Temperature 36.2 C L 03/20/20 06:06 Pulse Rate 63 03/20/20 06:06 Respiratory Rate 17 03/20/20 06:06 Blood Pressure 154/71 H 03/20/20 06:06 Pulse Oximetry 97 03/20/20 06:06 Temperature 36.2 C L 03/20/20 06:06 Pulse Rate 102 H 03/20/20 06:53 Respiratory Rate 18 03/20/20 06:53 Blood Pressure 129/72 03/20/20 06:53 Pulse Oximetry 99 03/20/20 06:53 MDM - Weakness MDM Narrative Medical decision making narrative: Work-up essentially negative. She seems to be very confused and weak. I do not think she is appropriate for assisted living at this time. I will plan to admit her for observation. Medical Records Attestation: I reviewed the patient's medical records. Lab Data Attestation: I reviewed the patient's lab results. Result diagrams: 03/20/20 06:20 03/20/20 06:20 Labs: Lab Results 03/20/20 03/20/20 03/20/20 Range/Units 06:20 06:20 06:20 WBC 9.7 (4.5-10.0) K/mm3 RBC 4.72 (4.2-5.4) M/mm3 Hgb 13.4 (12.0-15.0) g/dL Hct 42.1 (37.0-47.0) % MCV 89.2 (80-100) fl MCH 28.4 (26-34) pg MCHC 31.8 L (32-36) g/dl RDW 14.2 (11.5-14.5) % Plt Count 175 (150-375) k/mm3 MPV 12.7 H (7.4-10.4) fl Immature Gran % (Auto) 0.5 (0-0.5) % Neut % (Auto) 80.0 H (45.5-73.1) % Lymph % (Auto) 8.3 L (18.3-44.2) % [place] % (Auto) 10.5 H (2.6-8.5) % Eos % (Auto) 0.3 (0-4.4) % Baso % (Auto) 0.4 (0.2-1.2) % Lymph # (Auto) 0.81 L (0.9-3.2) K/mm3 [place] # (Auto) 1.0 H (0.1-0.6) K/mm3 Eos # (Auto) 0.0 (0-0.3) K/mm3 Baso # (Auto) 0.0 (0.0-0.1) K/mm3 Abs Immat Gran (auto) 0.05 H (0.00-0.031) K/mm3 Absolute Neuts (auto) 7.8 H (1.3-6.7) K/mm3 Absolute Nucleated RBC 0.0 (0.0-0.012) K/
--- NOTE | 2020-03-20 06:15 | PC.NURSE ---
pt in room drawing blood at this time.
[2020-03-20] MEDS: SODIUM CHLORIDE 0.9% IV 500 ML 999 ML IV CONT (06:21)
--- NOTE | 2020-03-20 06:23 | PC.NURSE ---
pt to ct at this time via stretcher
[2020-03-20 06:28] LABS: Basophils Percent Auto 0.4 % (0.2-1.2); Eosinophils Percent Auto 0.3 % (0-4.4); Hematocrit 42.1 % (37.0-47.0); Hemoglobin 13.4 g/dL (12.0-15.0); Immature Granulocyte Absolute 0.05 K/mm3 (0.00-0.031); Immature Granulocyte Percent A 0.5 % (0-0.5); Lymphocytes Absolute Auto 0.81 K/mm3 (0.9-3.2); Lymphocytes Percent Auto 8.3 % (18.3-44.2); Mean Corpuscular HGB Conc 31.8 g/dl (32-36); Mean Corpuscular Hemoglobin 28.4 pg (26-34); Mean Corpuscular Volume 89.2 fl (80-100); Mean Platelet Volume 12.7 fl (7.4-10.4); Monocytes Percent Auto 10.5 % (2.6-8.5); Neutrophils Absolute Auto 7.8 K/mm3 (1.3-6.7); Platelet Count Result 175 k/mm3 (150-375); Red Blood Count 4.72 M/mm3 (4.2-5.4); Red Cell Distribution Width 14.2 % (11.5-14.5); White Blood Count 9.7 K/mm3 (4.5-10.0)
[2020-03-20 06:36] LABS: INR 1.1; Partial Thromboplastin Time 32.3 SECONDS (22.3-36.8); Prothrombin Time 14.1 Seconds (11.1-14.7)
[2020-03-20 06:41] LABS: Alanine Aminotransferase 23 U/L (4-35); Albumin Level 4.3 g/dL (3.5-5.1); Alkaline Phosphatase 102 U/L (38-126); Anion Gap 8 mmol/L (8-16); Aspartate Amino Transferase 28 U/L (14-36); Bilirubin,Total 1.6 mg/dL (0.2-1.3); Blood Urea Nitrogen 40 mg/dL (7-17); Calcium 9.4 mg/dL (8.4-10.2); Carbon Dioxide 24 mmol/L (22-30); Chloride 108 mmol/L (98-107); Estimated Glomerular Filt Rate 47; Glucose 113 mg/dL (65-105); Sodium 140 mmol/L (137-145)
[2020-03-20 06:42] LABS: Lactic Acid Reflex 1.4 mmol/L (0.7-2.1)
[2020-03-20 06:53] VITALS: BP 129/72; PULSE 102; RESP 18; O2SAT 99
[2020-03-20 07:02] LABS: Add Urine Microscopic? YES; Appearance Urine Clear (Clear); Bilirubin Urine Negative (Negative); Blood Urine Negative (Negative); Color Urine Yellow (Yellow); Glucose Urine UA Negative (Negative); Ketones Urine 1+ mg/dL (Negative); Leukocyte Esterase Ur Negative LEU/UL (Negative); Mucus Urine Rare /lpf; Nitrate Urine Negative (Negative); Protein Urine 1+ mg/dL (Negative); RBC Urine 0-2 /hpf (0-2); Specific Grav Ur 1.025 (1.001-1.035); Squamous Epithelial Cell Urine Rare /hpf (Few); Urobilinogen Urine Negative mg/dL (<2.0); WBC Urine 0-3 /hpf
[2020-03-20 07:15] VITALS: PULSE 102
[2020-03-20 07:22] VITALS: BP 96/67; PULSE 92; RESP 16; O2SAT 97
--- NOTE | 2020-03-20 09:15 | PC.NURSE ---
This patient, Yenny Childers, was admitted to 2 Medical Room 255-01. Patient/family oriented to hospital policies and general routines including ID bracelet, bed and alarms, visiting hours, pain management, procedures, bathroom and other care routines, personal items, smoking policy, room service/diet, and visiting hours. Valuables list has been completed. Information on how to activate the Rapid Response Team has been discussed. Patient/Family are encouraged to report perceived risks to care and to ask questions if they do not understand what they are told or what they should do.
[2020-03-20] MEDS: LACTATED RINGERS 1,000 ML 75 ML IV CONT (11:50)
[2020-03-20 14:00] VITALS: BP 133/89; PULSE 83; RESP 16; TEMP 36.7; O2SAT 95
--- NOTE | 2020-03-20 16:43 | PM.IMHP ---
H&P: HPI History of Present Illness Date/Time: 03/20/20 16:43 Chief complaint: generalized weakness,dementia Narrative: Yenny Childers is a 84 year old female who resides at [facility]. The patient His had multiple falls in the past. She has a history of dementia. The patient had been here 06/26/2018 where she had a clavicle fracture from falling. At that time she had multiple stages of bruising due to falling and dizziness. Today she was brought in by EMS from [facility] for an unwitnessed fall. She was found on the ground this morning. She was too weak and could not get herself off the ground. She was having some pain but could pinpoint where the pain was. The head CT was read as nothing acute. The patient is not able to return back to the [facility] at this time. A bedbug was found on the patient in the emergency room and she was placed on contact isolation. Date of service 03/20/2020 Review of Systems Review of Systems: All systems reviewed & are unremarkable except as noted in HPI and below Constitutional: Constitutional: Reports as per HPI and Reports no additional constitutional complaints Eyes: Eyes: Reports as per HPI and Reports no additional eye complaints ENT: Reports system reviewed and no additional complaints, except as documented and Reports Normal hearing present Cardiovascular: Cardiovascular: Reports no additional cardiovascular complaints Respiratory: Respiratory: Reports no additional respiratory complaints and Reports no additional respiratory complaints Gastrointestinal: Gastrointestinal: Reports as per HPI and Reports no additional gastrointestinal complaints Musculoskeletal: Musculoskeletal: Reports no additional musculoskeletal complaints Integumentary/Breasts: Skin/Breast: Reports system reviewed and no additional complaints, except as docu and Reports as per HPI Neurologic: Reports system reviewed and no additional complaints, except as documented, Reports as per HPI and Reports Normal hearing present Psychiatric: Psychiatric: Reports no additional psychiatric complaints and Reports as per HPI Endocrine: Endocrine: Reports no additional endocrine complaints Hematologic/Lymphatic: Hematologic/Lymphatic: Reports no additional hematologic/lymphatic complaints Allergic/Immunologic: Allergic/Immunologic: Reports no additional allergic/immunologic complaints [facility] Past Medical History Medical History (Updated 03/20/20 @ 16:53 by Faustina Chappell NP) Clavicle fracture Dementia Fracture of T1 through T3 vertebrae Hypothyroidism Rib fracture 2 and 3 ribs Surgical History Surgical History (Updated 03/20/20 @ 16:53 by Faustina Chappell NP) Cataract extraction status H/O left knee surgery Family History Family History Mother Family history of respiratory disorder Father Family history of lung cancer Social History Social History (Updated 03/20/20 @ 16:54 by Faustina Chappell NP) Social History: 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 She went to [employer] for undergraduate and then for graduate work. She lives home alone. She used to work at [employer]. She never or had any children. No tobacco or alcohol abuse. Her brother fabricio was designated as a durable power deputy commonwealth's attorney for healthcare. She is a DNR. She resides at [facility]. No alcohol or illicit drug Smoking status: Never smoker Second hand tobacco smoke exposure: No Alcohol intake: never Substance use: never Substance use type: does not use Gender identity (if verbalized by the patient): Female Spiritual care concerns: No Meds Home Medications and Allergies Home Medications Medication Instructions Recorded Confirmed Type aspirin 81 mg tablet,delayed 81 mg PO DAILY #90 tablet 08/07/19 03/20/20 Rx release
[2020-03-20 20:00] VITALS: BP 112/60; PULSE 58; RESP 18; TEMP 36.3; O2SAT 96
[2020-03-21] MEDS: LACTATED RINGERS 1,000 ML 75 ML IV CONT ×2 (01:29→19:22)
[2020-03-21 04:00] VITALS: BP 162/60; PULSE 63; RESP 18; TEMP 36.3; O2SAT 97
[2020-03-21 06:35] LABS: Potassium 3.7 mmol/L (3.4-5.0)
[2020-03-21 06:46] LABS: Anion Gap 4 mmol/L (8-16); Blood Urea Nitrogen 24 mg/dL (7-17); Calcium 8.7 mg/dL (8.4-10.2); Carbon Dioxide 26 mmol/L (22-30); Chloride 110 mmol/L (98-107); Estimated Glomerular Filt Rate > 60; Glucose 81 mg/dL (65-105); Sodium 140 mmol/L (137-145)
[2020-03-21 07:47] LABS: Basophils Absolute Auto 0.1 K/mm3 (0.0-0.1); Eosinophils Absolute Auto 0.3 K/mm3 (0-0.3); Eosinophils Percent Auto 3.6 % (0-4.4); Hematocrit 39.1 % (37.0-47.0); Hemoglobin 12.5 g/dL (12.0-15.0); Immature Granulocyte Absolute 0.03 K/mm3 (0.00-0.031); Immature Granulocyte Percent A 0.4 % (0-0.5); Immature Platelet Fraction Pct 8.7 % (0.9-11.2); Lymphocytes Absolute Auto 1.21 K/mm3 (0.9-3.2); Lymphocytes Percent Auto 16.6 % (18.3-44.2); Mean Corpuscular Hemoglobin 28.8 pg (26-34); Mean Corpuscular Volume 90.1 fl (80-100); Mean Platelet Volume 13.5 fl (7.4-10.4); Monocytes Absolute Auto 0.7 K/mm3 (0.1-0.6); Monocytes Percent Auto 9.7 % (2.6-8.5); Neutrophils Percent Auto 68.7 % (45.5-73.1); Platelet Count Result 179 k/mm3 (150-375); Red Blood Count 4.34 M/mm3 (4.2-5.4); Red Cell Distribution Width 13.9 % (11.5-14.5); White Blood Count 7.3 K/mm3 (4.5-10.0)
--- NOTE | 2020-03-21 09:59 | PM.IMPN ---
Progress Note: A&P Assessment and Plan (1) Generalized weakness: Code(s): R53.1 - Weakness Status: Acute Assessment and Plan: The patient has suffered recurrent falls resulting in numerous fractures. It is not felt that she can return to assisted living safely given her underlying dementia and recurrent falls. She did appear dehydrated and received gentle IV fluids. I spoke with her POA, Poly Abdalla, who is in agreement for her to return to SNF. Care coordination is following and I will ask them to work on placement. (2) Hypothyroidism: Code(s): E03.9 - Hypothyroidism, unspecified Status: Chronic Assessment and Plan: TSH is normal at 1.19. Continue levothyroxine. (3) Dementia: Code(s): F03.90 - Unspecified dementia without behavioral disturbance Status: Acute Assessment and Plan: Chronic. Continue donepezil. (4) Acute kidney injury: Code(s): N17.9 - Acute kidney failure, unspecified Status: Acute Assessment and Plan: Resolved with gentle IV fluid rehydration. Likely secondary to poor PO intake. Continue to monitor. Renally dose medications and avoid nephrotoxins. Subjective Date/time seen: 03/21/20 09:59 Mrs. Childers is an 84 y.o. female with PMH significant for dementia and hypothyroidism who presented to the hospital for possible fall and progressive generalized weakness/deconditioning. It is not felt that it is safe for her to return to assisted living and SNF has been recommended. She has no complaints and feels well today. She is reluctant to consider SNF but I discussed that this seems like the safest discharge plan. She wants to get up and walk with therapy. Her appetite is good and she ate breakfast with no nausea, vomiting, or abdominal pain. She reports diarrhea recently which has now resolved. She denies pain. She denies chest pain, dyspnea, and palpitations. She denies dizziness, lightheadedness, and headaches. Review of Systems Review of Systems: All systems reviewed & are unremarkable except as noted in HPI and below Exam Narrative: Exam Narrative: General: Pleasant, disheveled appearing, well-developed 84 y.o. female lying supine in bed in no acute distress. HEENT: Normocephalic and atraumatic. Conjunctivae and lids normal. EOMI. Oral mucosa moist. Neck: Supple without lymphadenopathy or masses. Cardiac: Regular rate and rhythm. S1 and S2 normal. No murmur appreciated. Lungs: Lungs clear to auscultation bilaterally. Abdomen: Bowel sounds normoactive. Abdomen is soft, non-distended, and non-tender. Musculoskeletal: Extremities: Skin is dry. No lower extrmeity edema or cyanosis. Pedal pulses Neurological: Alert and oriented to person, month, year. She initially said she was at [facility] and then remembered she was at [facility]. Exam is non-focal. Speech is clear. Skin: Warm and dry. Psychiatric: Judgment and insight poor - she is forgetful and has trouble recalling details. Pt has dementia. Pleasant mood and appropriate affect. Objective Data Vital Signs Vital Signs: Vital Signs - 24 hr 03/20/20 14:00 03/20/20 20:00 03/21/20 04:00 Temperature 98.0 F 97.3 F L 97.3 F L Pulse Rate 83 58 L 63 Respiratory Rate 16 18 18 Blood Pressure 133/89 112/60 162/60 H Pulse Oximetry 95 96 97 Intake/Output Intake/Output: Intake & Output 03/18/20 03/19/20 03/20/20 03/21/20 23:59 23:59 23:59 23:59 Intake Total 250 1120 Output Total 100 Balance 150 1120 Meds/Results Medications: Active Medications Generic Name Dose Route Start Last Admin Trade Name Freq PRN Reason Stop Dose Admin Lactated Ringer's 1,000 mls @ 75 mls/hr 03/20/20 07:35 03/21/20 01:29 Lr - Lactated Ringers Iv IV CONT 75 mls/hr .[id number] JOVANNY Administration Radiology Results: ITS Impressions Head CT 03/20/20 08:15 IMPRESSION: 1. No acute intracranial abnormality. No significant interval anabel
[2020-03-21] MEDS: FERROUS GLUCONATE 324 MG TABLET PO (10:47)
[2020-03-21] MEDS: ASPIRIN 81 MG ENTERIC TABLET PO (10:48)
[2020-03-21] MEDS: DONEPEZIL HCL 10 MG TABLET PO (10:48)
[2020-03-21] MEDS: LEVOTHYROXINE SODIUM 125 MCG TABLET PO (10:48)
[2020-03-21 10:52] LABS: Bilirubin Indirect 1.3 mg/dL (0-1.1)
[2020-03-21 14:00] VITALS: BP 170/72; PULSE 58; RESP 17; TEMP 37.4; O2SAT 98
[2020-03-21] MEDS: amLODIPine BESYLATE 5 MG TABLET PO (16:44)
[2020-03-21 20:00] VITALS: PULSE 58; RESP 17; O2SAT 98
[2020-03-21 22:00] VITALS: BP 130/65; PULSE 52; RESP 22; TEMP 36.4; O2SAT 92
[2020-03-22 05:30] VITALS: BP 176/72; PULSE 63; RESP 18; TEMP 36.1; O2SAT 96
[2020-03-22 05:56] LABS: Anion Gap 5 mmol/L (8-16); Blood Urea Nitrogen 16 mg/dL (7-17); Calcium 8.6 mg/dL (8.4-10.2); Carbon Dioxide 26 mmol/L (22-30); Chloride 109 mmol/L (98-107); Estimated Glomerular Filt Rate > 60; Glucose 87 mg/dL (65-105); Potassium 3.5 mmol/L (3.4-5.0); Sodium 140 mmol/L (137-145)
[2020-03-22] MEDS: LEVOTHYROXINE SODIUM 125 MCG TABLET PO (06:00)
[2020-03-22] MEDS: amLODIPine BESYLATE 5 MG TABLET PO (09:28)
[2020-03-22] MEDS: LACTATED RINGERS 1,000 ML 75 ML IV CONT (09:28)
[2020-03-22] MEDS: DONEPEZIL HCL 10 MG TABLET PO (09:28)
[2020-03-22] MEDS: ASPIRIN 81 MG ENTERIC TABLET PO (09:28)
[2020-03-22] MEDS: FERROUS GLUCONATE 324 MG TABLET PO (09:29)
--- NOTE | 2020-03-22 12:14 | PM.DS ---
DS: Admitting Diagnosis Admitting Diagnosis Admitting Diagnosis: generalized weakness,dementia DS: Discharge Diagnosis Discharge Diagnosis (1) Generalized weakness: Code(s): R53.1 - Weakness Status: Acute Assessment and Plan: The patient has suffered recurrent falls resulting in numerous fractures. It is not felt that she can return to assisted living safely given her underlying dementia and recurrent falls. She did appear dehydrated and received gentle IV fluids on arrival. I spoke with her POA, Poly Abdalla, who is in agreement for her to return to [place] and will go to their prison. COVID test was negative. She was accepted into intermediate at [facility] where she will be discharged. At this time the patient denies any pain or discomfort. She is about to work with therapy and set up in the chair. (2) Hypothyroidism: Code(s): E03.9 - Hypothyroidism, unspecified Status: Chronic Assessment and Plan: TSH is normal at 1.19. Continue levothyroxine. (3) Dementia: Code(s): F03.90 - Unspecified dementia without behavioral disturbance Status: Acute Assessment and Plan: Chronic. Continue donepezil. (4) Acute kidney injury: Code(s): N17.9 - Acute kidney failure, unspecified Status: Acute Assessment and Plan: Resolved with gentle IV fluid rehydration. Likely secondary to poor PO intake. Creatinine is Normal at 0.8, BUN normal at 16. Educated the patient to continue drinking plenty of fluids and eating upon discharge. (5) Elevated blood pressure reading: Code(s): R03.0 - Elevated blood-pressure reading, without diagnosis of hypertension Status: Acute Assessment and Plan: Patient was found to have elevated blood pressure readings intermittently while hospitalized. She was started on Norvasc 5 mg in the morning. her blood pressure has been stable. Will have him continue checking her blood pressure twice a day at the prison to ensure she is not becoming hypotensive. DS: Summary Hospital Course Reason for hospitalization: Patient is an 84-year-old woman with a history of multiple falls, dementia, who presented to the emergency room after having an unwitnessed fall at her assisted living facility at [facility]. She was found on the ground and was too weak to get up. Temperature of 97.2?, blood pressure 154/71, heart rate 63, oxygen saturation 97% on room air. Initial labs showed normal CBC with differential, normal coag panel, slightly elevated creatinine at 1.1, BUN 40, normal TSH, urinalysis showed 1+ protein, 1+ ketones, 10-14 hyaline casts, no signs of acute infection. CT head showed no acute intracranial abnormality. No significant interval change. Hip x-ray showed mild osteoarthritis of the hip. The patient was admitted to the hospital for placement into a prison. Please see above under each diagnosis what transpired during her admission. Status at Discharge Cognitive/behavioral status at discharge: Stable, improved. Time Spent with Patient Time attestation: Total time spent providing and/or coordinating discharge services: Time spent: Greater than 30 minutes Exam Narrative: Exam Narrative: General: 84-year-old Woman laying flat in bed with head elevated at 30? talking with therapy. Appears comfortable. In no acute distress. Skin: no noticeable head trauma, bruising to extremities. No jaundice or cyanosis. Good skin turgor. Neck: Full range of motion. Supple. No tenderness to midline cervical spine or paraspinal tenderness bilaterally. No step-offs. Respiratory: Lungs are clear to auscultation bi
[2020-03-22 13:17] LABS: SARS-CoV-2 RNA PCR Negative
[2020-03-22 14:00] VITALS: BP 136/58; PULSE 64; RESP 18; TEMP 36.3; O2SAT 95
== END 2020-03-22 16:20 ==
LOC: ANHED 07:41 → ANH2MED 08:00
PROVIDERS: Nurse Practitioner; Physician Assistant; Admitting Provider Family Medicine; Emergency Provider Emergency Medicine; PCP Family Medicine; Visit Provider Physician Assistant
DX: R53.1 Weakness (principal); N17.9 Acute kidney failure, unspecified; M25.552 Pain in left hip; F03.90 Unspecified dementia, unspecified severity, without behavioral disturbance, psychotic disturbance, mood disturbance, and anxiety; E03.9 Hypothyroidism, unspecified; M16.0 Bilateral primary osteoarthritis of hip; Z23 Encounter for immunization; R29.6 Repeated falls; Z20.828 Contact with and (suspected) exposure to other viral communicable diseases
CPT/HCPCS: 36415; 51701; 70450; 73521; 80048; 80053; 81001; 82248; 83605; 83735; 84443; 85025; 85055; 85610; 85730; 87635; 90471; 90686; 93005; 96360; 96361; 97110; 97116; 97161; 97165; 97530; 97535; 99285; A9270; C9803; G0008; G0378; J7040; J7120; U0003

== ENCOUNTER 2020-07-21 09:55 | Emergency (ER) | payer MEDICARE, SELFPAY ==
--- NOTE | ~2020-07-21 | XR_ITS ---
EXAMINATION: XR chest 1V portable INDICATION: Transient alteration of awareness TECHNIQUE: Portable AP chest at 1040 hours COMPARISON: 08/09/2019 FINDINGS: There are minimal airspace opacities of the left lung base. Small pleural effusions are pre sent. There is no pneumothorax. Old healed right rib fractures are noted. The cardiomediastinal silho uette is normal. An old healed fracture of the distal left clavicle is noted. IMPRESSION: 1. Left basilar opacities, consistent with atelectasis versus pneumonia. 2. Small pleural effusions. Reviewed, dictated and finalized at location A. NUMBERER
[2020-07-21 10:02] VITALS: BP 109/96; PULSE 61; RESP 17; TEMP 36.5; O2SAT 98
--- NOTE | 2020-07-21 10:02 | ECG_ITS ---
Measurements Intervals [place] Rate: 62 P: 50 TX: 262 QRS: 12 QRSD: 88 T: 52 QT: 401 QTc: 408 Interpretive Statements SINUS RHYTHM WITH FIRST DEGREE AV BLOCK BASELINE ARTIFACT- I, II, III, AVR, AVL, AVF, V1 ABNORMAL ECG Electronically Signed On 07-21-2020 12:25:42 PATROL OFFICER by Harish Davis D.O.
[2020-07-21 10:07] VITALS: PULSE 63; O2SAT 99
[2020-07-21 10:22] LABS: Basophils Absolute Auto 0.1 K/mm3 (0.0-0.1); Basophils Percent Auto 0.9 % (0.2-1.2); Eosinophils Absolute Auto 0.2 K/mm3 (0-0.3); Eosinophils Percent Auto 3.7 % (0-4.4); Hematocrit 38.9 % (37.0-47.0); Hemoglobin 12.6 g/dL (12.0-15.0); Immature Granulocyte Absolute 0.02 K/mm3 (0.00-0.031); Immature Granulocyte Percent A 0.3 % (0-0.5); Lymphocytes Percent Auto 24.5 % (18.3-44.2); Mean Corpuscular HGB Conc 32.4 g/dl (32-36); Mean Corpuscular Hemoglobin 28.8 pg (26-34); Mean Platelet Volume 11.4 fl (7.4-10.4); Monocytes Absolute Auto 0.7 K/mm3 (0.1-0.6); Monocytes Percent Auto 11.9 % (2.6-8.5); Neutrophils Absolute Auto 3.4 K/mm3 (1.3-6.7); Neutrophils Percent Auto 58.7 % (45.5-73.1); Platelet Count Result 209 k/mm3 (150-375); Red Blood Count 4.37 M/mm3 (4.2-5.4); White Blood Count 5.7 K/mm3 (4.5-10.0)
[2020-07-21 10:33] LABS: Anion Gap 3 mmol/L (8-16); Blood Urea Nitrogen 25 mg/dL (7-17); Carbon Dioxide 30 mmol/L (22-30); Chloride 107 mmol/L (98-107); Estimated Glomerular Filt Rate 60; Glucose 95 mg/dL (65-105); Potassium 4.2 mmol/L (3.4-5.0); Sodium 140 mmol/L (137-145)
[2020-07-21 10:52] LABS: Alanine Aminotransferase 21 U/L (4-35); Albumin Level 3.4 g/dL (3.5-5.1); Alkaline Phosphatase 76 U/L (38-126); Anion Gap 4 mmol/L (8-16); Aspartate Amino Transferase 25 U/L (14-36); Bilirubin,Total 0.8 mg/dL (0.2-1.3); Blood Urea Nitrogen 25 mg/dL (7-17); Carbon Dioxide 29 mmol/L (22-30); Chloride 107 mmol/L (98-107); Estimated Glomerular Filt Rate > 60; Glucose 96 mg/dL (65-105); Potassium 4.2 mmol/L (3.4-5.0); Sodium 140 mmol/L (137-145)
[2020-07-21 10:53] LABS: Add Urine Microscopic? YES; Appearance Urine Clear (Clear); Bacteria Urine Trace /hpf; Bilirubin Urine Negative (Negative); Blood Urine Negative (Negative); Color Urine Yellow (Yellow); Glucose Urine UA Negative (Negative); Ketones Urine Negative (Negative); Leukocyte Esterase Ur Negative LEU/UL (Negative); Mucus Urine Rare /lpf; Nitrate Urine Negative (Negative); Protein Urine Negative (Negative); RBC Urine 0-2 /hpf (0-2); Specific Grav Ur 1.019 (1.001-1.035); Squamous Epithelial Cell Urine Rare /hpf (Few); Urobilinogen Urine Negative mg/dL (<2.0); WBC Urine 0-3 /hpf
--- NOTE | 2020-07-21 10:53 | ED.DIZZY ---
HPI - Dizziness General Chief Complaint: Syncope Stated Complaint: near syncope Time Seen by Provider: 07/21/20 10:05 Source: EMS Mode of arrival: EMS Limitations: dementia History of Present Illness HPI Narrative: Patient went to urinate, while sitting on the toilet developed the dizziness, required therapy assistant who helped her to go back to bed. longterm reporting that patient did not eating or drinking enough fluid over the last 7 days. Currently patient is asymptomatic and denying any symptoms of like go back to long-term. MD elicited complaint: dizziness Related Data Home Medications Medication Instructions Recorded Confirmed ferrous gluconate 324 mg PO DAILY 02/13/20 03/20/20 escitalopram oxalate mg 07/21/20 loperamide 2 mg PO QID 07/21/20 07/21/20 memantine 5 mg PO BID 07/21/20 07/21/20 quetiapine 25 mg PO HS 07/21/20 07/21/20 Allergies Allergy/AdvReac Type Severity Reaction Status Date / Time meperidine Allergy Unknown Stopped Verified 07/21/20 10:10 Breathing Review of Systems Review of Systems: ROS unobtainable: Yes unobtainable due to mental status PMFSH Past Medical History Medical History Clavicle fracture Dementia Fracture of T1 through T3 vertebrae Hypothyroidism Rib fracture 2 and 3 ribs Surgical History Surgical History Cataract extraction status H/O left knee surgery Family History Family History Mother Family history of respiratory disorder Father Family history of lung cancer Social History Social History Social History: 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 She went to [employer] for undergraduate and then for graduate work. She lives home alone. She used to work at [employer]. She never or had any children. No tobacco or alcohol abuse. Her brother fabricio was designated as a durable power assistant prosecuting attorney for healthcare. She is a DNR. She resides at [facility]. No alcohol or illicit drug Smoking status: Never smoker Second hand tobacco smoke exposure: No Alcohol intake: never Substance use: never Substance use type: does not use Gender identity (if verbalized by the patient): Female Spiritual care concerns: No Exam Narrative: Exam Narrative: General appearance: Well-developed, well-nourished, does not look in pain or distress. Skin: Normal color Head: Normocephalic, nontraumatic Eyes: Clear conjunctiva ENT: Oropharynx normal, ears normal, nose normal Neck: Supple, nontender Chest and respiratory: Airway patent, no respiratory distress, no accessory muscle use Heart: Regular rate/rhythm Abdomen: Soft, nontender, no organomegaly, quiet bowel sounds Vascular: Normal peripheral pulses, normal capillary refill. Musculoskeletal: Normal range of motion, nontender back Neurologic: Alert and oriented to her name, age and the year. Course Course Emergency Course: Stable Vital Signs Vital signs: Vital Signs Temperature 36.5 C 07/21/20 10:02 Pulse Rate 61 07/21/20 10:02 Respiratory Rate 17 07/21/20 10:02 Blood Pressure 109/96 H 07/21/20 10:02 Pulse Oximetry 98 07/21/20 10:02 Temperature 36.5 C 07/21/20 10:02 Pulse Rate 63 07/21/20 10:07 Respiratory Rate 17 07/21/20 10:02 Blood Pressure 109/96 H 07/21/20 10:02 Pulse Oximetry 99 07/21/20 10:07 MDM - Dizziness MDM Narrative Medical decision making narrative: Patient presents with dizziness while urinating, vasova
[2020-07-21 10:58] LABS: Prothrombin Time 13.5 Seconds (11.1-14.7)
[2020-07-21 11:03] LABS: Troponin I < 0.012 ng/mL (0.000-0.034)
[2020-07-21 11:34] VITALS: BP 138/71; PULSE 63; RESP 16; O2SAT 97
--- NOTE | 2020-07-21 12:15 | PC.NURSE ---
[facility] em[facility] accepted return to [id number] Trip#[id number]
[2020-07-21 12:20] VITALS: BP 126/71; PULSE 57; RESP 16; O2SAT 97
[2020-07-21 12:44] VITALS: BP 132/100; PULSE 54; RESP 14; O2SAT 97
== END 2020-07-21 12:55 ==
PROVIDERS: Emergency Provider Emergency Medicine; PCP Nurse Practitioner Family
DX: R55 Syncope and collapse (principal); F03.90 Unspecified dementia, unspecified severity, without behavioral disturbance, psychotic disturbance, mood disturbance, and anxiety; E03.9 Hypothyroidism, unspecified; Z98.49 Cataract extraction status, unspecified eye; Z66 Do not resuscitate
CPT/HCPCS: 36415; 51701; 71045; 80048; 80053; 81001; 84484; 85025; 85610; 93005; 99284

== ENCOUNTER 2020-11-01 10:15 | Observation (INO) | payer MEDICARE, SELFPAY ==
[2020-11-01] VITALS (10 sets, daily range): BP systolic 131–151; BP diastolic 67–98; PULSE 58–82; RESP 15–22; TEMP 36.1–36.6; O2SAT 92–96; BMI 21.5
--- NOTE | ~2020-11-01 | XR_ITS ---
EXAMINATION: XR barium swallow modified EXAM DATE: 11/02/2020 14:02 INDICATION: Dysphagia. Aspiration. TECHNIQUE: Modified barium esophagram was performed by speech pathologist with radiologist Dr. Toribio Chávez present to administered fluoroscopy. Speech pathologist administered barium in varying consis tencies as per speech pathologist documentation. This was recorded on tape. There was total fluorosc opic time of 1.0. The DAP for this procedure was 1.0 Gycm2. A total of 2 images obtained for the ex am. FINDINGS: Oral stage: Adequate function. Pharyngeal phase: Reduced laryngeal elevation, tongue base retraction. Sinus residual. Laryngeal penetration: Demonstrated. Aspiration: Demonstrated. Laryngeal sensitivity: Absent. IMPRESSION: Aspiration demonstrated; Please refer to speech pathologist findings and specific feedi ng recommendations. Reviewed, dictated and finalized at location A. IMPRESSION: Aspiration demonstrated; Please refer to speech pathologist findi ngs and specific feeding recommendations.
--- NOTE | ~2020-11-01 | CT_ITS ---
EXAMINATION: CT brain wo [facility] EXAM DATE: 11/01/2020 11:25 INDICATION: Syncope, lethargy. History dementia. TECHNIQUE: Spiral CT of the head was performed without contrast. Axial, coronal and sagittal images were reviewed. The dose-length product (DLP) for this examination was 756.67 mGy-cm. The exposure w as tailored according to patient size, and iterative reconstruction (ASIR) was used as additional dos e reduction technique. Comparison is made to prior examination from 03/20/2020. FINDINGS: There is no acute intraparenchymal hemorrhage. No evidence of intraparenchymal brain mass lesion. No evidence of acute infarction. Please note that initial head CT has limited sensitivity f or small or acute infarctions. There is moderate to severe periventricular and subcortical hypodensit y, nonspecific but probably related to small vessel ischemic disease. There is moderate prominence of the sulci and ventricles related to cerebral atrophy. 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 There are no extra-axial collections. There is no mass effect or midline shift. Patient has had bilateral ocular lens surgery. Calcified sebaceous cyst at the left vertex. The visualized sinus es and mastoid air cells are well aerated. IMPRESSION: 1. No acute intracranial findings. 2. Chronic age related findings. Reviewed, dictated and finalized at location A.
--- NOTE | 2020-11-01 10:34 | ECG_ITS ---
Measurements Intervals [place] Rate: 62 P: 68 [place]: 222 QRS: -6 QRSD: 89 T: 40 QT: 387 QTc: 396 Interpretive Statements SINUS RHYTHM WITH FIRST DEGREE AV BLOCK ATRIAL AND VENTRICULAR PREMATURE COMPLEXES BASELINE ARTIFACT- I, II, III, AVR, AVL, V5 ABNORMAL ECG Electronically Signed On 11-01-2020 11:01:46 CDT by Harish Davis D.O.
[2020-11-01 11:02] LABS: Basophils Absolute Auto 0.1 K/mm3 (0.0-0.1); Basophils Percent Auto 0.9 % (0.2-1.2); Eosinophils Absolute Auto 0.1 K/mm3 (0-0.3); Eosinophils Percent Auto 1.2 % (0-4.4); Hematocrit 43.1 % (37.0-47.0); Hemoglobin 13.6 g/dL (12.0-15.0); Immature Granulocyte Absolute 0.03 K/mm3 (0.00-0.031); Immature Granulocyte Percent A 0.4 % (0-0.5); Lymphocytes Absolute Auto 1.59 K/mm3 (0.9-3.2); Lymphocytes Percent Auto 23.1 % (18.3-44.2); Mean Corpuscular HGB Conc 31.6 g/dl (32-36); Mean Corpuscular Hemoglobin 29.4 pg (26-34); Mean Corpuscular Volume 93.3 fl (80-100); Mean Platelet Volume 11.5 fl (7.4-10.4); Monocytes Absolute Auto 0.7 K/mm3 (0.1-0.6); Monocytes Percent Auto 10.5 % (2.6-8.5); Neutrophils Absolute Auto 4.4 K/mm3 (1.3-6.7); Neutrophils Percent Auto 63.9 % (45.5-73.1); Platelet Count Result 243 k/mm3 (150-375); Red Blood Count 4.62 M/mm3 (4.2-5.4); Red Cell Distribution Width 14.8 % (11.5-14.5); White Blood Count 6.9 K/mm3 (4.5-10.0)
--- NOTE | 2020-11-01 11:10 | ED.GENADULT ---
HPI - General Adult General Chief complaint: Syncope Stated complaint: SYNCOPAL EPISODES Time Seen by Provider: 11/01/20 10:30 Source: patient History of Present Illness HPI narrative: Patient is 85 y/o female sent from a facility for syncope. 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 It's unknown how long she was out. There is no known alleviating or exacerbating factor. She has no recollection of what happened and does not know why she is here. She denies any pain. Related Data Home Medications Medication Instructions Recorded Confirmed ferrous gluconate 324 mg PO DAILY 02/13/20 11/01/20 escitalopram oxalate 10 mg DAILY 07/21/20 11/01/20 loperamide 2 mg PO PRN PRN 07/21/20 11/01/20 memantine 5 mg PO Q12H 07/21/20 11/01/20 quetiapine 25 mg PO HS 07/21/20 11/01/20 acetaminophen 1,000 mg PO Q12H 11/01/20 11/01/20 cyanocobalamin (vitamin B-12) 1,000 mcg SUBCUT MONTHLY 11/01/20 11/01/20 [Cyanacobalamin] donepezil 10 mg PO HS 11/01/20 11/01/20 levothyroxine 100 mcg PO DAILY 11/01/20 11/01/20 Allergies Allergy/AdvReac Type Severity Reaction Status Date / Time meperidine Allergy Unknown Stopped Verified 11/01/20 16:18 Breathing Review of Systems Review of Systems: ROS unobtainable: Yes unobtainable due to mental status PMFSH Past Medical History Medical History Clavicle fracture Dementia Fracture of T1 through T3 vertebrae Hypothyroidism Rib fracture 2 and 3 ribs Surgical History Surgical History Cataract extraction status H/O left knee surgery Family History Family History Mother Family history of respiratory disorder Father Family history of lung cancer Social History Social History Social History: 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 She went to [employer] for undergraduate and then for graduate work. She lives home alone. She used to work at [employer]. She never or had any children. No tobacco or alcohol abuse. Her brother fabricio was designated as a durable power securities attorney for healthcare. She is a DNR. She resides at [facility]. No alcohol or illicit drug Smoking status: Never smoker Second hand tobacco smoke exposure: No Alcohol intake: never Substance use: never Substance use type: does not use Gender identity (if verbalized by the patient): Female Spiritual care concerns: No Exam Const: General: no acute distress and well developed Orientation/consciousness: oriented to person, oriented to place and confusion HENMT: Head: normocephalic Ears: external ears normal General nose exam: Normal external nose present Eyes: General: appearance normal, both eyes and all related structures Conjunctivae: conjunctivae normal Neck: Neck: normal visual inspection and full ROM Chest: Chest palpation & inspection: normal inspection of the chest and no tenderness Resp: Effort & Inspection: normal respiratory effort Auscultation: clear to auscultation bilaterally Cardio: Rate: regular rate Rhythm: regular rhythm GI: GI Palp: No abdominal tenderness and Yes Soft to palpation Skin: General skin exam: normal color and turgor normal Neuro: General: oriented to person, oriented to place and confusion Cognition (Neuro): normal cognition Extrem: General: normal to inspection, full ROM and no pedal edema Psych: Appearance: grossly normal Mental Status: mental status grossly normal Affect: normal affect Course Consultations Consultation #1: Discussed with Dr. Butler, who agrees to admit. Date: 11/01/20 Time: 13:40 Vital Signs Vital signs: Vital Signs Pulse Rate 79 11/01/20 10:21 Respiratory Rate 22 H 11/01/20 10:21 Pulse Oximetry 92 11/01/20 10:21 Tem
[2020-11-01 11:13] LABS: Anion Gap 6 mmol/L (8-16); Blood Urea Nitrogen 21 mg/dL (7-17); Calcium 9.2 mg/dL (8.4-10.2); Carbon Dioxide 26 mmol/L (22-30); Chloride 113 mmol/L (98-107); Estimated CRCL calculation 28 ml/min; Estimated Glomerular Filt Rate 53; Glucose 96 mg/dL (65-105); Potassium 3.8 mmol/L (3.4-5.0); Sodium 145 mmol/L (137-145)
[2020-11-01 11:26] LABS: Alanine Aminotransferase 15 U/L (4-35); Albumin Level 3.9 g/dL (3.5-5.1); Alkaline Phosphatase 105 U/L (38-126); Aspartate Amino Transferase 26 U/L (14-36)
[2020-11-01 13:18] LABS: Add Urine Microscopic? YES; Amorphous Sediment Urine Few; Appearance Urine Cloudy (Clear); Bacteria Urine Trace /hpf; Bilirubin Urine Negative (Negative); Color Urine Yellow (Yellow); Glucose Urine UA Negative (Negative); Hyaline Casts Urine 20-29 /lpf; Ketones Urine Trace mg/dL (Negative); Leukocyte Esterase Ur Negative LEU/UL (Negative); Mucus Urine Heavy /lpf; Nitrate Urine Negative (Negative); Protein Urine 2+ mg/dL (Negative); Squamous Epithelial Cell Urine Rare /hpf (Few); Urobilinogen Urine Negative mg/dL (<2.0)
[2020-11-01 13:21] LABS: Blood Urine Negative (Negative)
--- NOTE | 2020-11-01 14:15 | PC.NURSE ---
Report given to 3rd floor. RN states room needs 10-15min to be cleaned. She will call this RN when room is ready.
--- NOTE | 2020-11-01 14:16 | PC.NURSE ---
Pts LADI Pang notified of patients admission and room number
--- NOTE | 2020-11-01 14:55 | ADMGEN ---
This patient, Yenny Childers, was admitted to 3 Medical Room 345-01. Patient/family oriented to hospital policies and general routines including ID bracelet, bed and alarms, visiting hours, pain management, procedures, bathroom and other care routines, personal items, smoking policy, room service/diet, and visiting hours. Information on how to activate the Rapid Response Team has been discussed. Patient/Family are encouraged to report perceived risks to care and to ask questions if they do not understand what they are told or what they should do.
--- NOTE | 2020-11-01 17:08 | PM.IMHP ---
H&P: HPI History of Present Illness Date/Time: 11/01/20 17:08 Chief Complaint: Syncope Narrative: this is an 85-year-old female with past medical history significant for dementia, hypothyroidism, chronic iron deficiency anemia patient [facility]. she was brought to the emergency room according to emergency room records due to syncopal episode however no details pertaining [place] is cared patient is very demented and unable to give me any history at this point. A friend is sitting at bedside but she cannot provide any history as well. Preliminary workup was pretty much unremarkable. 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 She went to [employer] for undergraduate and then for graduate work. She lives home alone. She used to work at [employer]. She never or had any children. No tobacco or alcohol abuse. Her brother fabricio was designated as a durable power claims attorney for healthcare. She is a DNR. She resides at [facility]. No alcohol or illicit drug Smoking status: Never smoker Second hand tobacco smoke exposure: No Alcohol intake: never Substance use: never Substance use type: does not use Gender identity (if verbalized by the patient): Female Spiritual care concerns: No Meds Home Medications and Allergies Home Medications Medication Instructions Recorded Confirmed Type aspirin 81 mg tablet,delayed 81 mg PO DAILY #90 tablet 08/07/19 11/01/20 Rx release ferrous gluconate 324 mg PO DAILY 02/13/20 11/01/20 History escitalopram oxalate 10 mg DAILY 07/21/20 11/01/20 History loperamide 2 mg PO PRN PRN 07/21/20 11/01/20 History memantine 5 mg PO Q12H 07/21/20 11/01/20 History quetiapine 25 mg PO HS 07/21/20 11/01/20 History acetaminophen 1,000 mg PO Q12H 11/01/20 11/01/20 History cyanocobalamin (vitamin B-12) 1,000 mcg SUBCUT MONTHLY 11/01/20 11/01/20 History [Cyanacobalamin] donepezil 10 mg PO HS 11/01/20 11/01/20 History levothyroxine 100 mcg PO DAILY 11/01/20 11/01/20 History Allergies Allergy/AdvReac Type Severity Reaction Status Date / Time meperidine Allergy Unknown Stopped Verified 11/01/20 16:18 Breathing Vital Signs Vital Signs - 24 hr 11/01/20 10:21 11/01/20 10:30 11/01/20 10:31 Temperature 97.9 F Pulse Rate 79 67 67 Respiratory Rate 22 H 15 18 Blood Pressure 147/98 H 151/75 H Pulse Oximetry 92 93 94 11/01/20 11:04 11/01/20 12:46 11/01/20 13:46 Temperature 97.6 F Pulse Rate 82 62 62 Respiratory Rate 19 18 18 Blood Pressure 145/77 H 131/67 148/76 H Pulse Oximetry 93 94 94 11/01/20 15:13 11/01/20 16:00 Temperature 96.9 F L Pulse Rate 61 58 L Respiratory Rate 18 Blood Pressure 149/76 H Pulse Oximetry 95 Exam Narrative: Exam Narrative: patient is laying in bed in no acute distress well appearing Const: General: comfortable, no acute distress, well developed, alert and awake Nutritional Appearance: average body habitus Orientation/consciousness: oriented to person HENMT: Head: normal to inspection, normocephalic and atraumatic Ears: hearing grossly normal bilaterally Face and sinus: normal facial exam Eye
[2020-11-01] MEDS: ACETAMINOPHEN 500 MG TABLET 1000 MG PO (20:18)
[2020-11-01] MEDS: MEMANTINE 5 MG TABLET PO (20:18)
[2020-11-01] MEDS: DONEPEZIL HCL 10 MG TABLET PO (20:18)
[2020-11-01] MEDS: QUEtiapine FUMARATE 25 MG TABLET PO (20:19)
[2020-11-02] VITALS (9 sets, daily range): BP systolic 141–145; BP diastolic 65–88; PULSE 46–75; RESP 14–18; TEMP 35.8–36.8; O2SAT 95–100; BMI 21.5
[2020-11-02] MEDS: LEVOTHYROXINE SODIUM 100 MCG TABLET PO (05:49)
[2020-11-02] MEDS: FERROUS GLUCONATE 324 MG TABLET PO (08:35)
[2020-11-02] MEDS: ESCITALOPRAM OXALATE 5 MG TABLET 10 MG BY MOUTH (08:35)
[2020-11-02] MEDS: MEMANTINE 5 MG TABLET PO ×2 (08:35→21:22)
[2020-11-02] MEDS: ASPIRIN 81 MG ENTERIC TABLET PO (08:35)
[2020-11-02] MEDS: ACETAMINOPHEN 500 MG TABLET 1000 MG PO ×2 (08:35→21:22)
--- NOTE | 2020-11-02 09:44 | ECHO_ITS ---
Patient Info Name: Yenny Childers Age: 85 years : 1935 Gender: Female Ht: 61 in Wt: 114 lbs BSA: 1.50 m2 HR: 59 bpm BP: 141 / 88 mmHg Technical Quality: Fair Exam Date: 11/02/2020 3:28 PM Exam Location: [facility] Pulmonary Exam Room: [facility] Patient Status: Inpatient Admit Date: 11/01/2020 Staff Ordering Physician: Patrick Boucher MD [employer] Specialist: Bianka Rodriguez RDCS Attending Provider: eRbecca Butler MD Referring Physician: Sander BAHENA; Exam Type: CA echo doppler color flow Study Info Indications - syncope Complete two-dimensional, color flow and Doppler transthoracic echocardiogram is performed. Summary 1. Complete two-dimensional, color flow and Doppler transthoracic echocardiogram is performed. 2. Left ventricular systolic function is normal, estimated at 60-65%. 3. The left ventricular diastolic function is grade I diastolic dysfunction. 4. Left atrial chamber dimension is mildly enlarged. 5. There is mild aortic valve sclerosis. 6. There is mild aortic valve regurgitation. 7. There is moderate to severe mitral valve regurgitation. 8. There is mild tricuspid valve regurgitation. 9. No pulmonary hypertension, estimated pulmonary arterial systolic pressure is 27 mmHg. Left Ventricle Left ventricular chamber dimension is normal. Left ventricular systolic function is normal, estimated at 60-65%. There is no increased left ventricular wall thickness. Left ventricular septal wall motion is normal. The left ventricular diastolic function is grade I diastolic dysfunction. Right Ventricle Right ventricular chamber dimension is normal. Right ventricular systolic function is normal. Left Atria Left atrial chamber dimension is mildly enlarged. Right Atria Right atrial chamber dimension is normal. Atrial Septum Intact interatrial septum visualized by color flow imaging. Aortic Valve The aortic valve is trileaflet. There is mild aortic valve sclerosis. There is no aortic valve stenosis. There is mild aortic valve regurgitation. Pulmonic Valve The pulmonic valve is normal. There is no pulmonic valve stenosis. There is mild pulmonic regurgitation. Mitral Valve The mitral valve has thickened leaflets. There is no mitral valve stenosis. There is moderate to severe mitral valve regurgitation. Tricuspid Valve The tricuspid valve leaflets are normal. There is no significant tricuspid valve stenosis. There is mild tricuspid valve regurgitation. No pulmonary hypertension, estimated pulmonary arterial systolic pressure is 27 mmHg. Pericardium/Pleural The pericardium appears normal. There is no pericardial effusion. Inferior Vena Cava Normal inferior vena cava with >50% collapse upon inspiration consistent with normal right atrial pressure, 5 mmHg. Aorta The aortic root size at the sinus of Valsalva is normal. The prox ascending aorta size is normal. Left Ventricular Outflow Tract Name Value Normal LVOT 2D LVOT Diameter 2.0 cm LVOT Doppler LVOT Peak Gradient 3 mmHg LVOT Mean Gradient 2 mmHg
--- NOTE | 2020-11-02 09:45 | PM.CNCAR ---
Assessment and Plan Assessment and plan (1) Syncope: Qualifiers: Syncope type: unspecified Qualified Code(s): R55 - Syncope and collapse Code(s): R55 - Syncope and collapse Status: Acute Assessment and Plan: Unclear if truly syncope. Pt has no recollection but knows she has fallen on more than one occasion. I do not highly suspect cardiac etiology. She mentions velma issue in pat although exam does not corroborate. No Echo in system. Will obtain 2D Echo to further exclude structural cardiac contribution. Consider carotid dopplers, although no sig bruits on exam, no evidence of CVA on CT head unlikely to be a significant factor. Likely related to deconditioning, medications, dementia. no significant tachy or ricardo arrhythmias on telemetry. She is not on AV shayla blocking agents. Would avoid nonetheless. I would allow degree of permissive hypertension and not be aggressive about control given clinical circumstances. Check Orthostatics and TSH. (2) Recurrent falls: Code(s): R29.6 - Repeated falls Status: Acute Assessment and Plan: Multiple contributing factors likely (3) Dementia: Code(s): F03.90 - Unspecified dementia without behavioral disturbance Status: Acute Assessment and Plan: Chronic appears at baseline per review of records. (4) Hypothyroidism: Code(s): E03.9 - Hypothyroidism, unspecified Status: Chronic Assessment and Plan: Check TSH. History of Present Illness History of Present Illness Consult date/time: Date of service: 11/02/20 09:45 Cardiology consultation at the request of Dr. Crockett for our opinion regarding recurrent falls and suspected syncope. Requesting physician: Cordelia Crockett MD Consult reason: Other (falls, syncope) Reason For Visit: Syncope Narrative: Patient is a very pleasant demented 85-year-old female with a past medical history significant for hypothyroidism, chronic iron deficiency anemia and frequent falls since to the emergency department for fall and concern for syncope. Patient has no recollection or details with regards to any instance and does not know why she is in the hospital. She know she has fallen in the past but denies a recent event. she denies chest pain, shortness of breath, palpitations or dizziness. She denies fevers, chills or recent illnesses. She has been in sinus rhythm with since admission and hemodynamically stable. Urinalysis unremarkable. Per documentation in the emergency department it was reported she had passed out while standing yet it was unknown how long she had lost consciousness. Furthermore, there is no information if this was a witnessed event. Review electronic medical record revealed multiple ER visits for falls, altered mental status. No cardiovascular workup admitted performed or requested previously. She has no known prior cardiac history, CVA or thromboembolic disorder. CT of the head did not reveal acute infarction or bleed. Twelve lead EKG unremarkable with exception of first-degree AV block. Review of Systems Review of Systems: All systems reviewed & are unremarkable except as noted in HPI and below Constitutional: Constitutional: Reports as per HPI, Reports no additional constitutional complaints and Reports weakness Comments: recurrent falls Eyes: Eyes: Reports as per HPI and Reports no additional eye complaints ENT: Reports system reviewed and no additional complaints, except as documented and Reports as per HPI Cardiovascular: Cardiovascular: Reports as per HPI, Reports no additional cardiovascular complaints, Denies chest pain, Denies leg edema, Denies lightheadedness and Denies palpitations Respiratory: Respiratory: Reports as per HPI, Reports no additional respiratory complaints, Reports cough (raspy voice), Denies dyspnea and Denies dyspnea on exertion Gastrointestinal: Gastrointestinal: Reports as per HPI, Reports no additional gastrointest
--- NOTE | 2020-11-02 10:36 | PCSTNOTE ---
Please refer to the Bedside Swallow Evaluation in the EMR. Please note, silent aspiration cannot be ruled out at bedside.
--- NOTE | 2020-11-02 13:07 | PM.IMPN ---
Progress Note: A&P Assessment and Plan (1) Syncope: Qualifiers: Syncope type: unspecified Qualified Code(s): R55 - Syncope and collapse Code(s): R55 - Syncope and collapse Status: Acute Assessment and Plan: will place patient in observation status continue to monitor supportive care CT of the head reviewed labs reviewed unclear etiology (2) Altered mental status: Qualifiers: Altered mental status type: unspecified Qualified Code(s): R41.82 - Altered mental status, unspecified Code(s): R41.82 - Altered mental status, unspecified Status: Acute Assessment and Plan: apparently patient is back to her usual as per friend long-time friend that is sitting beside her (3) Elevated blood pressure reading: Code(s): R03.0 - Elevated blood-pressure reading, without diagnosis of hypertension Status: Acute Assessment and Plan: patient with normal High blood pressure continue to monitor (4) Hypothyroidism: Code(s): E03.9 - Hypothyroidism, unspecified Status: Chronic Assessment and Plan: restart home meds (5) Generalized weakness: Code(s): R53.1 - Weakness Status: Acute Assessment and Plan: PT OT (6) Dementia: Code(s): F03.90 - Unspecified dementia without behavioral disturbance Status: Acute Assessment and Plan: resume memantine, donepezil and Seroquel (7) Dysphagia: Code(s): R13.10 - Dysphagia, unspecified Status: Acute Assessment and Plan: Had a speech swallow eval Will have Valium swallow study Subjective Date/time seen: 11/02/20 13:07 Review of Systems Review of Systems: ROS unobtainable: Yes unobtainable due to medical condition ( patient has dementia) Exam Narrative: Exam Narrative: patient is laying in bed in no acute distress well appearing Const: General: comfortable, no acute distress, well developed, alert and awake Nutritional Appearance: average body habitus Orientation/consciousness: oriented to person HENMT: Head: normal to inspection, normocephalic and atraumatic Ears: hearing grossly normal bilaterally Face and sinus: normal facial exam Eyes: General: appearance normal, both eyes and all related structures Pupils: Equal, round and reactive pupils present EOM: EOMs intact bilaterally Neck: Neck: full ROM, no lymphadenopathy and no JVD Thyroid: thyroid normal Lymphatic: no lymphadenopathy noted Resp: Effort & Inspection: normal respiratory effort and able to speak in complete sentences Auscultation: clear to auscultation bilaterally Cardio: Jugular venous distension: no JVD Rate: regular rate Rhythm: regular rhythm Heart sounds: S1 normal heart sound present and S2 normal heart sound present : General: Yes deferred Skin: Rashes: no rashes Wounds: no wounds Neuro: General: oriented to person, CN's II-XI intact bilaterally and Unable to assess gait Cranial nerves: Yes CN's II-XII intact bilaterally and Yes Equal, round and reactive pupils present Cognition (Neuro): abnormal cognition ( advanced dementia) Speech: normal speech Gait exam (Neuro): Unable to assess gait Motor exam (neuro): 5/5 motor strength present throughout Extrem: General: normal to inspection, full ROM, no joint enlargement and no pedal edema Objective Data Vital Signs Vital Signs: Vital Signs - 24 hr 11/01/20 13:46 11/01/20 15:13 11/01/20 16:00 Temperature 96.9 F L Pulse Rate 62 61 58 L Respiratory Rate 18 18 Blood Pressure 148/76 H 149/76 H Pulse Oximetry 94 95 11/01/20 20:00 11/01/20 20:02 11/02/20 00:00 Temperature 97.7 F Pulse Rate 63 77 46 L Respiratory Rate 18 Blood Pressure 147/70 H Pulse Oximetry 96 11/02/20 04:00 11/02/20 04:32 11/02/20 08:00 Temperature 98.2 F Pulse Rate 50 L 75 49 L Respiratory Rate 14 Blood Pressure 141/88 H Pulse Oximetry 95 11/02/20 08:24 11/02/20 12:00 Tem
--- NOTE | 2020-11-02 13:11 | PCOTNOTE ---
Attempted OT evaluation, but unable to complete as patient leaving for a MBS. Will attempt again later.
--- NOTE | 2020-11-02 14:23 | PCSTNOTE ---
Please refer to the Modified Barium Swallow Evaluation in the EMR.
[2020-11-02] MEDS: DONEPEZIL HCL 10 MG TABLET PO (21:22)
[2020-11-02] MEDS: QUEtiapine FUMARATE 25 MG TABLET PO (21:22)
[2020-11-03 04:58] VITALS: BP 151/87; PULSE 51; RESP 16; TEMP 36.4; O2SAT 97
--- NOTE | 2020-11-03 10:46 | PM.PNCARD ---
Progress Note: A&P Assessment and Plan (1) Syncope: Qualifiers: Syncope type: unspecified Qualified Code(s): R55 - Syncope and collapse Code(s): R55 - Syncope and collapse Status: Acute Assessment and Plan: Unclear if truly syncope. Pt has no recollection but knows she has fallen on more than one occasion. I do not highly suspect cardiac etiology. She mentions velma issue in pat although exam does not corroborate. No Echo in system. Echocardiogram shows normal LV systolic function she does have significant mitral valve regurgitation but that does not explain falling down. no significant tachy or ricardo arrhythmias on telemetry Yesterday. She is not on telemetry today.. She is not on AV shayla blocking agents. Would avoid nonetheless. I would allow degree of permissive hypertension and not be aggressive about control given clinical circumstances. Check Orthostatics and TSH. (2) Recurrent falls: Code(s): R29.6 - Repeated falls Status: Acute Assessment and Plan: Multiple contributing factors likely (3) Dementia: Code(s): F03.90 - Unspecified dementia without behavioral disturbance Status: Acute Assessment and Plan: Chronic appears at baseline per review of records. (4) Hypothyroidism: Code(s): E03.9 - Hypothyroidism, unspecified Status: Chronic Assessment and Plan: Check TSH. Subjective Date/time seen: Date of service 11/03/20 10:46 no complaints today. She is sitting on chair. She is not oriented to time or person. she is not on telemetry. Review of Systems Review of Systems: All systems reviewed & are unremarkable except as noted in HPI and below Constitutional: Constitutional: Reports as per HPI, Reports no additional constitutional complaints and Reports weakness Eyes: Eyes: Reports as per HPI and Reports no additional eye complaints ENT: Reports system reviewed and no additional complaints, except as documented, Reports as per HPI and Reports neck pain Cardiovascular: Cardiovascular: Reports as per HPI, Reports no additional cardiovascular complaints, Denies chest pain, Denies leg edema, Denies lightheadedness, Denies palpitations, Denies dyspnea and Denies dyspnea on exertion Respiratory: Respiratory: Reports as per HPI, Reports no additional respiratory complaints, Reports cough (raspy voice), Denies dyspnea and Denies dyspnea on exertion Gastrointestinal: Gastrointestinal: Reports as per HPI, Reports no additional gastrointestinal complaints, Denies abdominal pain and Reports diarrhea Genitourinary: Genitourinary: Reports as per HPI Musculoskeletal: Musculoskeletal: Reports no additional musculoskeletal complaints, Reports as per HPI, Reports arthralgias and Reports neck pain Integumentary/Breasts: Skin/Breast: Reports system reviewed and no additional complaints, except as docu and Reports as per HPI Neurologic: Reports system reviewed and no additional complaints, except as documented, Reports as per HPI, Reports confusion and Reports weakness Psychiatric: Psychiatric: Reports no additional psychiatric complaints, Reports as per HPI and Reports confusion Endocrine: Endocrine: Reports no additional endocrine complaints, Reports as per HPI and Denies palpitations Hematologic/Lymphatic: Hematologic/Lymphatic: Reports no additional hematologic/lymphatic complaints and Reports as per HPI Allergic/Immunologic: Allergic/Immunologic: Reports no additional allergic/immunologic complaints and Reports as per HPI Exam Narrative: Exam Narrative: General: frail appearing elderly WF sitting upright in bed, pleasantly demented occ answering questions appropriately, thin. A&Ox2 (name, [facility], stated September 2019). No apparent distress, comfortable, pleasant, and cooperative. Head: atraumatic, normocephalic Eyes: EOM intact, sclerae anicteric, conjunctivae unremarkable Ears/Nose: external inspection of ears and
--- NOTE | 2020-11-03 11:46 | PCNFU ---
Nutrition Follow-Up Complete: Swallowing Difficulties as related to AMS/dementia as evidenced by MBS. Goal: Meet estimated nutritional needs Progressing towards goal. We will continue current goal. Pt current nutrition is Heart Healthy with Ensure Compact BID(220 kcals and 9 gms protein). Last recorded weight is 51.8 kg, no new weight to report. Bowel Motility:+BM 11/02 Labs Reviewed:no new labs to report. Meds Noted:Aricept, Seroquel. Additional Notes: Nutrition follow up. Patient had MBS 11/02-passed. Diet order advanced to a heart healthy diet. Oral Intake: 50% for breakfast today. Hospice consult. Monitoring: Will monitor every 5 days.
--- NOTE | 2020-11-03 12:04 | PM.DS ---
DS: Admitting Diagnosis Admitting Diagnosis Admitting Diagnosis: (1) Syncope: Qualifiers: Syncope type: unspecified Qualified Code(s): R55 - Syncope and collapse Code(s): R55 - Syncope and collapse Status: Acute Assessment and Plan: will place patient in observation status continue to monitor supportive care CT of the head reviewed labs reviewed unclear etiology (2) Altered mental status: Qualifiers: Altered mental status type: unspecified Qualified Code(s): R41.82 - Altered mental status, unspecified Code(s): R41.82 - Altered mental status, unspecified Status: Acute Assessment and Plan: apparently patient is back to her usual as per friend long-time friend that is sitting beside her (3) Elevated blood pressure reading: Code(s): R03.0 - Elevated blood-pressure reading, without diagnosis of hypertension Status: Acute Assessment and Plan: patient with normal High blood pressure continue to monitor (4) Hypothyroidism: Code(s): E03.9 - Hypothyroidism, unspecified Status: Chronic Assessment and Plan: restart home meds (5) Generalized weakness: Code(s): R53.1 - Weakness Status: Acute Assessment and Plan: PT OT (6) Dementia: Code(s): F03.90 - Unspecified dementia without behavioral disturbance Status: Acute Assessment and Plan: resume memantine, donepezil and Seroquel DS: Discharge Diagnosis Discharge Diagnosis (1) Syncope: Qualifiers: Syncope type: unspecified Qualified Code(s): R55 - Syncope and collapse Code(s): R55 - Syncope and collapse Status: Acute Assessment and Plan: will place patient in observation status continue to monitor supportive care CT of the head reviewed labs reviewed unclear etiology (2) Altered mental status: Qualifiers: Altered mental status type: unspecified Qualified Code(s): R41.82 - Altered mental status, unspecified Code(s): R41.82 - Altered mental status, unspecified Status: Acute Assessment and Plan: apparently patient is back to her usual as per friend long-time friend that is sitting beside her (3) Elevated blood pressure reading: Code(s): R03.0 - Elevated blood-pressure reading, without diagnosis of hypertension Status: Acute Assessment and Plan: patient with normal High blood pressure continue to monitor (4) Hypothyroidism: Code(s): E03.9 - Hypothyroidism, unspecified Status: Chronic Assessment and Plan: restart home meds (5) Generalized weakness: Code(s): R53.1 - Weakness Status: Acute Assessment and Plan: PT OT (6) Dementia: Code(s): F03.90 - Unspecified dementia without behavioral disturbance Status: Acute Assessment and Plan: resume memantine, donepezil and Seroquel (7) Dysphagia: Code(s): R13.10 - Dysphagia, unspecified Status: Acute Assessment and Plan: Had a speech swallow eval Will have Valium swallow study patient showed aspiration in view of these patient has been made hospice and she will continue on an oral diet. DS: Summary Hospital Course Reason for hospitalization: syncope Hospital Course: This is an 85-year-old female with past medical history significant for dementia patient resides at [facility] in assisted living facility she was witnessed to have a syncopal episode while sitting. Preliminary workup was essentially nonrevealing. patient was noticed to be coughing with food intake a swallow eval showed patient has dysphagia we proceeded to keep her on an oral diet and make her hospice. patient received IV fluids and she has had an uneventful hospital stay. Consults obtained: No consults procedures: No procedures Status at Discharge Cognitive/behavioral status at discharge: AAOX1 Functional status at discharge
== END 2020-11-03 13:25 | disposition hospice, home (50) ==
LOC: ANHED 13:54 → ANH3MED 16:18
PROVIDERS: Admitting Provider Family Medicine; Emergency Provider Emergency Medicine; PCP Nurse Practitioner Family; Visit Provider Internal Medicine
DX: R55 Syncope and collapse (principal); R13.10 Dysphagia, unspecified; R41.82 Altered mental status, unspecified; R29.6 Repeated falls; R03.0 Elevated blood-pressure reading, without diagnosis of hypertension; R53.1 Weakness; D50.8 Other iron deficiency anemias; E03.9 Hypothyroidism, unspecified; F03.90 Unspecified dementia, unspecified severity, without behavioral disturbance, psychotic disturbance, mood disturbance, and anxiety
CPT/HCPCS: 36415; 70450; 80048; 80076; 81001; 85025; 87086; 92610; 92611; 93005; 93306; 97161; 97165; 97535; 99285; A9270; G0378